=== PATIENT | female | born 1940 | race Caucasian/White ===

== ENCOUNTER 2021-04-14 20:20 | Emergency (ER) | payer MEDICARE ==
--- NOTE | 2021-04-14 20:37 | ED ---
General Adult HPI - General Chief complaint: Trauma Stated complaint: Fall Time Seen by Provider: 04/14/21 20:28 Source: patient Mode of arrival: wheelchair Limitations: no limitations - History of Present Illness Initial comments: Dictation was produced using Everlater dictation software. please excuse any grammatical, word or spelling errors. Chief Complaint: 81-year-old female presents after fall History of Present Illness: 81-year-old female she presents after fall. She takes eliquis for H fibrillation. She states that 1 hour prior to arrival she was taking a step down from Her period misstep about 18 inches. She states she missed a step and fell landing on her right shoulder. She denies hitting her head. No neck pain. No loss consciousness. Patient has no other complaints except for some right shoulder pain. States she has history of rotator cuff injury to that shoulder. The ROS documented in this emergency department record has been reviewed and confirmed by me. Those systems with pertinent positive or negative responses have been documented in the HPI. All other systems are other negative and/or noncontributory. PHYSICAL EXAM: General Impression: Alert and oriented x3, not in acute distress HEENT: Normocephalic atraumatic, extra-ocular movements intact, pupils equal and reactive to light bilaterally, mucous membranes moist. Cardiovascular: Heart regular rate and rhythm Chest: Able to complete full sentences, no retractions, no tachypnea Abdomen: abdomen soft, non-tender, non-distended, no organomegaly Musculoskeletal: Pulses present and equal in all extremities, no peripheral edema Motor: no focal deficits noted Neurological: CN II-XII grossly intact, no focal motor or sensory deficits noted Skin: Intact with no visualized rashes Psych: Normal affect and mood Right shoulder: No step-offs of the clavicle, internal/external rotation are nonantalgic, she does report some pain with abduction past 85 ED course: 81-year-old female takes and a coagulation medications for A. fib presents after fall from a height of 18 inches. All signs upon arrival are within acceptable limits. Physical examination is benign for any severe traumatic injuries. Patient isn't activated level II trauma due to anticoagulation status and fall from greater than ground-level. Patient seen and evaluated via ATLS protocol. Shoulder x-ray unremarkable. Pelvis x-rays unremarkable. Chest x-ray is unrema rkable. Computed tomography scan of the head and C-spine is unremarkable. There is however appear to be sclerotic changes to C4. Laboratory evaluation shows leukopenia of 2.8, macrocytic anemia. Rest of labs unremarkable. No old labs for comparison. Patient notified of her results. Still to follow-up with her primary care doctor. Patient notified of these findings per she states she has a history of breast cancer and these findings are known and being addressed. She has history of leukopenia.. She has a PET scan in the near future to assess for any metastatic disease. Patient is agreeable for discharge. Return precautions discussed. - Related Data Allergies Allergy/AdvReac Type Severity Reaction Status Date / Time No Known Allergies Allergy Verified 04/14/21 20:26 Review of Systems ROS Statement: Those systems with pertinent positive or pertinent negative responses have been documented in the HPI. ROS Other: All systems not noted in ROS Statement are negative. Past Medical History Past Medical History: Atrial Fibrillation Additional Past Medical History / Comment(s): hypotension, balance issues History of Any Multi-Drug Resistant Organisms: None Reported Past Surgical History: Ear Surgery, Heart Catheterization With Stent, Orthopedic Surgery Additional Past Surgical History / Comment(s): rt shoulder Past Psychological History: No Psychological Hx Reported Smoking Status: Never smoker Past Alcohol Use History: None Reported Past Drug Use History: None Reported General Exam Limitations: no limitations Course Vital Signs 04/14/21 20:22 Temperature 97.6 F Pulse Rate 72 Respiratory 20 Rate Blood Pressure 144/77 O2 Sat by Pulse 99 Oximetry Medical Decision Making - Lab Data Result diagrams: 04/14/21 20:57 04/14/21 20:57 Lab Results 04/14/21 04/14/21 Range/Units 20:57 20:57 WBC 2.8 L (3.8-10.6) k/uL RBC 2.73 L (3.80-5.40) m/uL Hgb 10.1 L (11.4-16.0) gm/dL Hct 29.5 L (34.0-46.0) % MCV 108.2 H (80.0-100.0) fL MCH 37.1 H (25.0-35.0) pg MCHC 34.3 (31.0-37.0) g/dL RDW 17.1 H (11.5-15.5) % Plt Count 137 L (150-450) k/uL MPV 7.7 Neutrophils % 57 % Lymphocytes % 33 % Monocytes % 5 % Eosinophils % 1 % Basophils % 1 % Neutrophils # 1.6 (1.3-7.7) k/uL Lymphocytes # 0.9 L (1.0-4.8) k/uL Monocytes # 0.1 (0-1.0) k/uL Eosinophils # 0.0 (0-0.7) k/uL Basophils # 0.0 (0-0.2) k/uL Manual Slide Review Performed Anisocytosis Slight Macrocytosis Marked A Sodium 137 (137-145) mmol/L Potassium 4.3 (3.5-5.1) mmol/L Chloride 106 (98-107) mmol/L Carbon Dioxide 23 (22-30) mmol/L Anion Gap 8 mmol/L BUN 29 H (7-17) mg/dL Creatinine 1.14 H (0.52-1.04) mg/dL Est GFR (CKD-EPI)AfAm 53 (>60 ml/min/1.73 sqM) Est GFR (CKD-EPI)NonAf 46 (>60 ml/min/1.73 sqM) Glucose 117 H (74-99) mg/dL Calcium 9.6 (8.4-10.2) mg/dL Total Bilirubin 0.2 (0.2-1.3) mg/dL AST 23 (14-36) U/L ALT 12 (4-34) U/L Alkaline Phosphatase 80 (38-126) U/L Total Protein 6.4 (6.3-8.2) g/dL Albumin 3.9 (3.5-5.0) g/dL Disposition Clinical Impression: Fall Disposition: HOME SELF-CARE Condition: Good Instructions (If sedation given, give patient instructions): Fall Prevention ( ED) Is patient prescribed a controlled substance at d/c from ED?: No Referrals: None,Stated [Primary Care Provider] - 1-2 days
--- NOTE | 2021-04-14 21:05 | XR ---
Result: Clinical History: Pain. Comparison: None available. Technique: 3 views of the right shoulder. Findings: The bone mineralization is appropriate for age. No acute fracture or dislocation is seen. The acromioclavicular and glenohumeral joints demonstrate mild degenerative changes. 3 mm calcific density adjacent to the tuberosity, compatible with calcific tendinopathy. Right MediPort catheter and lymph node dissection clips seen. Impression: No acute osseous abnormality..
--- NOTE | 2021-04-14 21:06 | XR ---
Result: History: Pain status post fall. Comparison: None available. Technique: A single frontal radiograph of the pelvis was reviewed. Findings: No acute fracture or dislocation is seen. The visualized osseous structures are in anatomic alignmen t. There are mild to moderate degenerative changes of the bilateral hips . Impression: No acute osseous abnormality.
--- NOTE | 2021-04-14 21:07 | XR ---
EXAMINATION TYPE: XR chest 1V portable DATE OF EXAM: 04/14/2021 COMPARISON: NONE HISTORY: Pain status post fall. TECHNIQUE: Single frontal view of the chest is obtained. FINDINGS: There is no focal air space opacity, pleural effusion, or pneumothorax seen. The cardiac silhouette size is enlarged. The osseous structures are intact. Right IJ port catheter with tip ove rlying the caudal SVC is seen. Upper abdominal surgical clips noted. IMPRESSION: No acute process.
[2021-04-14 21:16] LABS: Anisocytosis Slight; Basophils % (A) 1 %; Eosinophils % (A) 1 %; HCT 29.5 % (34.0-46.0); HGB 10.1 gm/dL (11.4-16.0); Lymphocytes # (A) 0.9 k/uL (1.0-4.8); Lymphocytes % (A) 33 %; MCH 37.1 pg (25.0-35.0); MCHC 34.3 g/dL (31.0-37.0); MCV 108.2 fL (80.0-100.0); Macrocytosis Marked; Mean Platelet Volume 7.7; Monocytes # (A) 0.1 k/uL (0-1.0); Monocytes % (A) 5 %; Neutrophils # (A) 1.6 k/uL (1.3-7.7); Neutrophils % (A) 57 %; Platelet Count 137 k/uL (150-450); RBC 2.73 m/uL (3.80-5.40); RDW 17.1 % (11.5-15.5); WBC 2.8 k/uL (3.8-10.6)
[2021-04-14 21:25] LABS: Albumin 3.9 g/dL (3.5-5.0); Calcium 9.6 mg/dL (8.4-10.2); Potassium 4.3 mmol/L (3.5-5.1); Total Bilirubin 0.2 mg/dL (0.2-1.3); Total Protein 6.4 g/dL (6.3-8.2)
--- NOTE | 2021-04-14 21:33 | CT ---
EXAMINATION TYPE: CT brain cspine wo con DATE OF EXAM: 04/14/2021 COMPARISON: None available. HISTORY: fall with pain. CT DLP: 1255.4 mGycm Automated exposure control for dose reduction was used. TECHNIQUE: CT scan of the head and cervical spine are performed without contrast. FINDINGS: There is no acute intracranial hemorrhage, mass effect, or midline shift identified. The ventricles and sulci are within normal limits in size. The globes are intact and the visualized sin uses are clear. Cervical spine is visualized in its entirety from C1 through upper thoracic levels and demonstrates s atisfactory alignment without evidence of acute fracture or dislocation. There is nonspecific mild sc lerotic changes of C4 without bony destruction. Mild cervical spondylosis. Prevertebral soft tissue a ppears within normal limits. The C1-C2 articulation is unremarkable. Right IJ catheter noted. IMPRESSION: No acute intracranial or cervical spine abnormality. Nonspecific C4 sclerotic changes without bony destruction. Etiology and chronicity is indeterminate. Metastatic disease cannot be excluded. Recommend correlation with prior imaging if available. Otherwi se consider bone scan or PET CT for further evaluation..
[2021-04-14 22:04] VITALS: BP 129/86; PULSE 68; RESP 18; TEMP 98
== END 2021-04-14 21:50 | disposition home or self-care (01) ==
LOC: EC 20:20
DX: M25.511 Pain in right shoulder (principal); I48.91 Unspecified atrial fibrillation; Z85.3 Personal history of malignant neoplasm of breast; Z79.01 Long term (current) use of anticoagulants; W10.9XXA Fall (on) (from) unspecified stairs and steps, initial encounter
CPT/HCPCS: 36415; 70450; 71045; 72125; 72170; 80053; 85025; 93005; 99284

== ENCOUNTER → 2021-04-19 | Outpatient (CLI) | payer MEDICARE ==
--- NOTE | 2021-04-19 17:30 | MR ---
EXAMINATION TYPE: MR brain wo/w con DATE OF EXAM: 04/19/2021 COMPARISON: CT brain 04/14/2021 HISTORY: 81-year-old female Breast Cancer, dizziness, loss of balance, abnormal imaging TECHNIQUE: Multiplanar, multisequence images of the brain and brainstem were acquired before and aft er administration of 7 mL IV Gadavist. Diffusion weighted imaging is performed. FINDINGS: The C4 sclerosis seen on recent CT of the cervical spine shows only mild diminished signal on MRI and no significant postcontrast enhancement. No evidence for acute infarction, hemorrhage, mass, mass effect, midline shift, herniation, effacemen t of basal cisterns, or extra-axial fluid collection. There is moderate generalized supratentorial volume loss. No hydrocephalus. Moderate scattered burden of T2 bright white matter change throughout the subcortical, deep, and julia ventricular regions of both rib hemispheres. Dominant left vertebral artery. Otherwise, major intracranial flow voids are intact. Midline structures demonstrate normal morphology. The craniocervical junction is normal. Post contrast images demonstrate no evidence of pathologic enhancement. Dural venous sinuses are pat ent. Mild mucosal thickening ethmoid air cells and floor of the left maxillary sinus. Trapped fluid in the left mastoid air cells and minimal within the right mastoid air cells. IMPRESSION: 1. Moderate cerebral atrophy and moderate burden of chronic small vessel ischemic disease. No acute i ntracranial abnormality or enhancing intracranial lesions seen. 2. The C4 sclerosis described on recent CT of the cervical spine shows only mildly diminished T1 sign al. Findings are nonspecific but the lack of any appreciable enhancement makes metastatic disease les s likely. Findings may reflect an island of red marrow hyperplasia or atypical hemangioma. Depending on clinical suspicion for metastatic disease, either PET/CT versus follow-up cervical spine MRI in 3 months can be considered. 3. Trapped fluid in the left mastoid air cells. Correlate for any mastoid pain to exclude mastoiditis . Lesser degree of fluid in the right mastoid air cells.
== END | disposition home or self-care (01) ==
LOC: RADMRIMAIN 12:59
PROVIDERS: ATTEND Internal Medicine Hematology & Oncology
DX: I67.82 Cerebral ischemia (principal)
CPT/HCPCS: 70553; A9585

== ENCOUNTER → 2021-05-05 | Outpatient (CLI) | payer MEDICARE ==
--- NOTE | 2021-05-05 16:08 | NM ---
EXAMINATION TYPE: NM bone scan whole body DATE OF EXAM: 05/05/2021 COMPARISON: NONE HISTORY: Breast cancer Delayed whole-body scanning was performed following the injection of 22.6 mCi Tc 99m MDP. Images acq uired 3.5 hours post injection. FINDINGS: Abnormal uptake involving the right maxilla likely related to periodontal disease. Abnormal uptake of moderate intensity involving the shoulders most typical of arthritic change. Abnormal uptake involving the knees and feet most typical of arthritic change. Faint photopenic area in the AP view of the right anterior rib cage likely artifactual. There is mild intensity uptake seen throughout the thoracic spine and lower lumbar spine likely degen erative. Mild intensity uptake involving the sternum and sternoclavicular joints most likely post arthritic. IMPRESSION: 1. No diagnostic evidence of metastases. Abnormal uptake involving the vertebral, is felt most likely degenerative. 2. Nonspecific uptake involving the sternum most likely post arthritic. X-ray correlation recommended for confirmation.
== END | disposition home or self-care (01) ==
LOC: RADNMMAIN 10:40
PROVIDERS: ATTEND Internal Medicine Hematology & Oncology
DX: C50.919 Malignant neoplasm of unspecified site of unspecified female breast (principal)
CPT/HCPCS: 78306; A9503

== ENCOUNTER 2021-09-01 05:13 | Emergency (ER) | payer MEDICARE ==
[2021-09-01 05:22] VITALS: TEMP 97.4
--- NOTE | 2021-09-01 05:30 | ED ---
Fall HPI - General Chief Complaint: Fall Stated Complaint: Fall, neck injury Time Seen by Provider: 09/01/21 05:29 Source: patient, RN notes reviewed, old records reviewed Mode of arrival: ambulatory Limitations: no limitations - History of Present Illness Initial Comments: This is a 81-year-old female to the ER for evaluation of fall is a mechanical tr ip and fall with head injury. No blood thinners. Patient has had significant swelling to the head. Patient states she was making cookies been sick for this morning she was feeling persistently dizzy and lightheaded after this but now improved. 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[employer] Fall Witnessed: yes, by family Place Fall Occurred: home Loss of Consciousness: none Prolonged Down Time?: no Symptoms Prior to Fall: none Location: head Severity: mild Context: tripped/slipped Associated Symptoms: headache - Related Data Home Medications Medication Instructions Recorded Confirmed Aspirin EC [Ecotrin Low Dose] 81 mg PO DAILY 09/02/21 09/02/21 Calcium Carbonate/Vitamin D3 1 tab PO DAILY 09/02/21 09/02/21 [Calcium 500 mg-Vit D3 5 mcg (200 Unit)] Cholecalciferol [Vitamin D3 (25 25 mcg PO DAILY 09/02/21 09/02/21 Mcg = 1000 Iu)] Clopidogrel [Plavix] 75 mg PO DAILY 09/02/21 09/02/21 Cyanocobalamin (Vitamin B-12) 1,000 mcg PO DAILY 09/02/21 09/02/21 [Vitamin B-12] Letrozole [Femara] 2.5 mg PO HS 09/02/21 09/02/21 Levothyroxine Sodium [Synthroid] 75 mcg PO DAILY 09/02/21 09/02/21 Loratadine [Claritin] 10 mg PO DAILY 09/02/21 09/02/21 Metoprolol Succinate [Toprol XL] 25 mg PO DAILY 09/02/21 09/02/21 Midodrine [ProAmatine] 15 mg PO BID 09/02/21 09/02/21 Niacin 500 mg PO HS 09/02/21 09/02/21 Vit C/E/Zn/Coppr/Lutein/Zeaxan 1 cap PO BID 09/02/21 09/02/21 [Preservision Areds 2 Softgel] Vitamin B Complex 1 cap PO DAILY 09/02/21 09/02/21 Previous Rx's Medication Instructions Recorded Docusate [Colace] 100 mg PO BID PRN cap 09/04/21 Folic Acid 1 mg PO DAILY@1200 tab 09/04/21 Meclizine [Antivert] 12.5 mg PO TID #60 tab 09/04/21 Multivitamins, Thera [Multivitamin 1 each PO DAILY@1200 tab 09/04/21 (formulary)] Thiamine [Vitamin B-1] 100 mg PO DAILY@1200 tab 09/04/21 Allergies Allergy/AdvReac Type Severity Reaction Status Date / Time No Known Allergies Allergy Verified 09/02/21 11:16 Review of Systems ROS Statement: Those systems with pertinent positive or pertinent negative responses have been documented in the HPI. ROS Other: All systems not noted in ROS Statement are negative. Past Medical History Past Medical History: Atrial Fibrillation Additional Past Medical History / Comment(s): hypotension, balance issues History of Any Multi-Drug Resistant Organisms: None Reported Past Surgical History: Ear Surgery, Heart Catheterization With Stent, Orthopedic Surgery Additional Past Surgical History / Comment(s): rt shoulder Past Psychological History: No Psychological Hx Reported Smoking Status: Never smoker Past Alcohol Use History: None Reported Past Drug Use History: None Reported General Exam Limitations: no limitations General appearance: alert, in no apparent distress Head exam: Present: normocephalic, normal inspection. Absent: atraumatic (mild scalp hematoma) Eye exam: Present: normal appearance, PERRL, EOMI. Absent: scleral icterus, conjunctival injection, periorbital swelling ENT exam: Present: normal exam, mucous membranes moist Neck exam: Present: normal inspection. Absent: tenderness, meningismus, lymphadenopathy Respiratory exam: Present: normal lung sounds bilaterally. Absent: respiratory distress, wheezes, rales, rhonchi, stridor Cardiovascular Exam: Present: regular rate, normal rhythm, normal heart sounds. Absent: systolic murmur, diastolic murmur, rubs, gallop, clicks GI/Abdominal exam: Present: soft, normal bowel sounds. Absent: distended, tenderness, guarding, rebound, rigid Extremities exam: Present: normal inspection, full ROM, normal capillary refill. Absent: tenderness, pedal edema, joint swelling, calf tenderness Back exam: Present: normal inspection Neurological exam: Present: alert, oriented X3, CN II-XII intact Psychiatric exam: Present: normal affect, normal mood Skin exam: Present: warm, dry, intact, normal color. Absent: rash Course Vital Signs 09/01/21 09/01/21 09/01/21 05:16 05:30 07:00 Temperature 97.4 F L Pulse Rate 101 H 84 87 Respiratory 16 18 18 Rate Blood Pressure 119/74 113/69 112/71 O2 Sat by Pulse 99 98 99 Oximetry - Reevaluation(s) Reevaluation #1: Medical record is reviewed Patient symptoms are significantly improved here in the emergency department Patient informed results and questions answered Medical Decision Making - Medical Decision Making 81 female to the clavicle for evaluation of head. Mild. No other findings, CT brain C-spine is negative patient can be discharged home - Lab Data Lab Results 09/01/21 Range/Units 06:00 POC Glucose (mg/dL) 98 (75-99) mg/dL POC Glu Plumber Maintenance ID Dakota Nguyễn - EKG Data -: EKG Interpreted by Me (EKG shows A. fib 94 QRS 94 QTC 487) - Radiology Data Radiology results: report reviewed (CT brain C spine is negative for acute disease), image reviewed Disposition Clinical Impression: Fall, Scalp hematoma Disposition: HOME SELF-CARE Condition: Good Instructions (If sedation given, give patient instructions): Fall Prevention for Older Adults (ED) Is patient prescribed a controlled substance at d/c from ED?: No Referrals: None,Stated [Primary Care Provider] - 1-2 days
[2021-09-01 05:45] VITALS: RESP 18
[2021-09-01 06:01] LABS: Glucose,Whole Blood 98 mg/dL (75-99)
[2021-09-01 07:01] VITALS: BP 112/71; PULSE 87
--- NOTE | 2021-09-01 07:04 | CT ---
EXAMINATION TYPE: CT brain cspine wo con DATE OF EXAM: 09/01/2021 COMPARISON: Prior trauma CT April 14, 2021 HISTORY: Fall injury with headache and neck pain. CT DLP: 1245.7 mGycm. Automated Exposure Control for Dose Reduction was Utilized. TECHNIQUE: CT scan of the head and cervical spine are performed without contrast. FINDINGS: There is no acute intracranial hemorrhage or midline shift identified. Mild ventricular a nd sulcal prominence redemonstrated. The calvarium is intact. The globes are intact and the visualiz ed sinuses are clear. Small right parieto-occipital acute scalp hematoma axial image 48. Cervical spine is visualized in its entirety from C1 through upper thoracic levels and demonstrates s table and satisfactory alignment without evidence of acute fracture or dislocation. Prevertebral sof t tissue appears within normal limits. The C1-C2 articulation is within normal limits on coronal woody ges. Sclerotic C4 redemonstrated. Vertebral body heights are maintained. Mild to moderate disc space narrowing C6-C7 level redemonstrated. Posterior disc herniation effaces the anterior thecal sac at C 3-C4 level. Posterior spur disc complex effaces the anterior thecal sac C6-C7 level. Both similar in appearance to prior study. Axial images show multilevel uncovertebral and facet degenerative changes contribute to mild multilev el neural foraminal narrowing. Small-sized thyroid gland redemonstrated. Lung apices show no pneumoth orax. There is partial visualization of right-sided Mediport catheter. IMPRESSION: 1. There is no acute fracture or dislocation evident in the cervical spine. 2. No acute intracranial hemorrhage or midline shift is seen. New small high right parietal acute sca lp hematoma.
[2021-09-01] MEDS ORDERED: MORPHINE SULFATE 4 MG/ML SYRINGE IV STA (07:37)
[2021-09-01] MEDS ORDERED: SODIUM CHLORIDE 0.9% 1,000 ML IV STA (07:37)
== END 2021-09-01 07:50 | disposition home or self-care (01) ==
LOC: EC 05:13
DX: S00.03XA Contusion of scalp, initial encounter (principal); I48.91 Unspecified atrial fibrillation; Z79.82 Long term (current) use of aspirin; Z79.02 Long term (current) use of antithrombotics/antiplatelets; Z79.890 Hormone replacement therapy; Z79.899 Other long term (current) drug therapy; W01.0XXA Fall on same level from slipping, tripping and stumbling without subsequent striking against object, initial encounter; Y92.009 Unspecified place in unspecified non-institutional (private) residence as the place of occurrence of the external cause
CPT/HCPCS: 36415; 70450; 72125; 93005; 99284

== ENCOUNTER 2021-09-02 08:23 | Inpatient (IN) | payer MEDICARE ==
--- NOTE | 2021-09-02 09:13 | ED ---
General Adult HPI - General Chief complaint: Dizziness Stated complaint: Revisit/NeuroSymp/Dizziness Time Seen by Provider: 09/02/21 08:29 Source: patient Mode of arrival: wheelchair Limitations: physical limitation - History of Present Illness Initial comments: Dictation was produced using [employer] dictation software. please excuse any grammatical, word or spelling errors. Chief Complaint: 81-year-old female presents with dizziness and right lower extremity weakness after fall History of Present Illness: Patient is 81-year-old female she has multiple comorbidities. Patient states she centimeters by me yesterday. She suffered a fall at approximately 4 PM yesterday. She was seen in the emergency room. Computed tomography scan of the head and C-spine was performed showing no acute processes. Patient was discharged home in stable medical condition. Patient states that she's had balance issues ongoing for the last several months. She attributes this to medications that she is on for cancer treatment. Patient states she lost her balance yesterday fell backwards and hit the back of her head. She was seen in the ER had a computed tomography scan of the head and C- spine is normal. Patient states that when she got home she started to feel dizzy. She started to feel worse which prompted her to come back to the [facility] department. Patient also noted after the fall that she had right lower extremity weakness. Patient states she never had issues with weakness to her lower extremities. 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 The ROS documented in this emergency department record has been reviewed and confirmed by me. Those systems with pertinent positive or negative responses have been documented in the HPI. All other systems are other negative and/or noncontributory. PHYSICAL EXAM: General Impression: Alert and oriented x3, not in acute distress HEENT: Normocephalic atraumatic, extra-ocular movements intact, pupils equal and reactive to light bilaterally, mucous membranes moist. Cardiovascular: Heart regular rate and rhythm Chest: Able to complete full sentences, no retractions, no tachypnea Abdomen: abdomen soft, non-tender, non-distended, no organomegaly Musculoskeletal: Pulses present and equal in all extremities, no peripheral edema Motor: no focal deficits noted Neurological: CN II-XII grossly intact, 4/5 strength of the right lower extremity, no sensory issues Skin: Intact with no visualized rashes Psych: Normal affect and mood ED course: 81-year-old female presents to the emergency department for dizziness right lower extremity weakness. She suffered a fall yesterday was seen in the ER had a CT of the brain and C-spine which is unremarkable for traumatic issues or any acute processes per she is discharged home. She returns to the emergency department for dizziness and right lower extremity weakness. She has mild weakness to the right lower extremity. Vital signs upon arrival are within acceptable limits. Patient does have noticeable weakness and drift to the right lower extremity. Laboratory evaluation obtained. Leukopenia of 2.8. This is patient's baseline. Patient also has macrocytosis with a MCV of 114. Coag panel is unremarkable. Metabolic panel is normal. Repeat computed tomography scan of brain shows no acute injuries. X-ray and ankle x-ray unremarkable. Vision reevaluated at the bedside. Her leg is still slightly weak. It's unclear was causing patient's symptoms. She reports that her weakness was from after the fall. She does have some symptoms of concussion with some dizziness after she fell and hit her head. Nonetheless patient will be admitted to the hospital under Dr. Carson with neurology consultation. This point there is no clear cause of patient's symptoms. EKG interpretation: Ventricular rate 61, A. fib, QRS 80, QTc 450. No W[place] prolongation, no QTC prolongation, no ST or T-wave changes noted. EKG compared to 12/31/2020 showing no changes. Overall, this EKG is unremarkable - Related Data Allergies Allergy/AdvReac Type Severity Reaction Status Date / Time No Known Allergies Allergy Verified 09/02/21 08:31 Review of Systems ROS Statement: Those systems with pertinent positive or pertinent negative responses have been documented in the HPI. ROS Other: All systems not noted in ROS Statement are negative. Past Medical History Past Medical History: Atrial Fibrillation Additional Past Medical History / Comment(s): hypotension, balance issues History of Any Multi-Drug Resistant Organisms: None Reported Past Surgical History: Ear Surgery, Heart Catheterization With Stent, Orthopedic Surgery Additional Past Surgical History / Comment(s): rt shoulder Past Psychological History: No Psychological Hx Reported Smoking Status: Never smoker Past Alcohol Use History: None Reported Past Drug Use History: None Reported General Exam Limitations: physical limitation Course Vital Signs 09/02/21 09/02/21 08:28 09:46 Temperature 97.8 F Pulse Rate 67 71 Respiratory 18 18 Rate Blood Pressure 113/53 113/66 O2 Sat by Pulse 100 99 Oximetry Medical Decision Making - Lab Data Result diagrams: 09/02/21 09:46 09/02/21 09:46 Lab Results 09/02/21 09/02/21 09/02/21 Range/Units 09:46 09:46 09:46 WBC 2.8 L (3.8-10.6) k/uL RBC 2.47 L (3.80-5.40) m/uL Hgb 9.3 L (11.4-16.0) gm/dL Hct 28.1 L (34.0-46.0) % MCV 114.0 H (80.0-100.0) fL MCH 37.8 H (25.0-35.0) pg MCHC 33.2 (31.0-37.0) g/dL RDW 13.8 (11.5-15.5) % Plt Count 211 (150-450) k/uL MPV 7.5 Neutrophils % 56 % Lymphocytes % 28 % Monocytes % 10 % Eosinophils % 1 % Basophils % 1 % Neutrophils # 1.6 (1.3-7.7) k/uL Lymphocytes # 0.8 L (1.0-4.8) k/uL Monocytes # 0.3 (0-1.0) k/uL Eosinophils # 0.0 (0-0.7) k/uL Basophils # 0.0 (0-0.2) k/uL Manual Slide Review Performed Macrocytosis Marked A PT 10.3 (9.0-12.0) sec INR 1.0 (<1.2) APTT 23.4 (22.0-30.0) sec Sodium 139 (137-145) mmol/L Potassium 4.4 (3.5-5.1) mmol/L Chloride 108 H (98-107) mmol/L Carbon Dioxide 22 (22-30) mmol/L Anion Gap 9 mmol/L BUN 20 H (7-17) mg/dL Creatinine 0.81 (0.52-1.04) mg/dL Est GFR (CKD-EPI)AfAm 80 (>60 ml/min/1.73 sqM) Est GFR (CKD-EPI)NonAf 70 (>60 ml/min/1.73 sqM) Glucose 94 (74-99) mg/dL Calcium 9.2 (8.4-10.2) mg/dL Magnesium 2.1 (1.6-2.3) mg/dL Total Bilirubin 0.3 (0.2-1.3) mg/dL AST 32 (14-36) U/L ALT 15 (4-34) U/L Alkaline Phosphatase 86 (38-126) U/L Total Protein 6.1 L (6.3-8.2) g/dL Albumin 3.5 (3.5-5.0) g/dL Disposition Clinical Impression: Right leg weakness Disposition: ADMITTED IP TO THIS [facility] Condition: Fair Referrals: Hernán Carson MD [Primary Care Provider] - 1-2 days
[2021-09-02 09:51] LABS: Basophils % (A) 1 %; Eosinophils % (A) 1 %; HCT 28.1 % (34.0-46.0); HGB 9.3 gm/dL (11.4-16.0); Lymphocytes # (A) 0.8 k/uL (1.0-4.8); Lymphocytes % (A) 28 %; MCH 37.8 pg (25.0-35.0); MCHC 33.2 g/dL (31.0-37.0); Macrocytosis Marked; Mean Platelet Volume 7.5; Monocytes # (A) 0.3 k/uL (0-1.0); Monocytes % (A) 10 %; Neutrophils # (A) 1.6 k/uL (1.3-7.7); Neutrophils % (A) 56 %; Platelet Count 211 k/uL (150-450); RBC 2.47 m/uL (3.80-5.40); RDW 13.8 % (11.5-15.5); WBC 2.8 k/uL (3.8-10.6)
[2021-09-02 10:04] LABS: Partial Thromboplastin Time 23.4 sec (22.0-30.0); Prothrombin Time 10.3 sec (9.0-12.0)
[2021-09-02 10:12] LABS: Albumin 3.5 g/dL (3.5-5.0); Calcium 9.2 mg/dL (8.4-10.2); Magnesium 2.1 mg/dL (1.6-2.3); Potassium 4.4 mmol/L (3.5-5.1); Total Bilirubin 0.3 mg/dL (0.2-1.3); Total Protein 6.1 g/dL (6.3-8.2)
--- NOTE | 2021-09-02 10:12 | CT ---
EXAMINATION TYPE: CT brain wo con DATE OF EXAM: 09/02/2021 COMPARISON: 09/01/2021 HISTORY: Head injury CT DLP: 1094.4 mGycm Automated exposure control for dose reduction was used. FINDINGS: The ventricles, basal cisterns and sulci over the convexities are within normal limits and there is n o mass, mass effect or shift of midline structures. No abnormal density is seen throughout the brain parenchyma and there is no acute intra or extra-axia l hemorrhage. The posterior fossa including the brainstem, fourth ventricle and cerebellar pontine angles are gross ly normal. The intraorbital contents appear normal and symmetric. Visualized paranasal sinuses and mastoid air cells are well aerated although there is mild mucosal th ickening in the left maxillary sinus. IMPRESSION: NO ACUTE BLEED OR MASS EFFECT. THE CALVARIUM IS INTACT.
--- NOTE | 2021-09-02 10:21 | XR ---
Right ankle HISTORY: Pain following trauma. COMPARISON: None. TECHNIQUE: 3 views of the right ankle were obtained. The ankle mortise is intact and there is no fracture or dislocation. There is no radiopaque foreign body or abnormal soft tissue calcification. IMPRESSION: Soft tissue swelling without fracture, dislocation or focal intraosseous abnormality.
--- NOTE | 2021-09-02 10:23 | XR ---
Right knee HISTORY: Pain. 4 views the right knee were obtained. There is no fracture patient or focal intraosseous abnormality. There is no joint effusion. There is marked chondrocalcinosis of the medial and lateral compartments. There is mild hypertrophic spurring of the margins indicating degenerative change. IMPRESSION: No acute fracture or dislocation. Degenerative changes as described above.
[2021-09-02] MEDS ORDERED: NALOXONE 0.4 MG/ML 1 ML VIAL IV PRN (10:34)
--- NOTE | 2021-09-02 14:40 | MR ---
EXAMINATION TYPE: MR brain wo con DATE OF EXAM: 09/02/2021 COMPARISON: 04/19/2021 HISTORY: Right leg weakness, ?CVA, dizziness. Multiplanar multiecho imaging of the brain without contrast. There is cerebral cortical atrophy. There is no mass effect nor midline shift. Diffusion images show no evidence of an acute infarct. On the T2 and FLAIR images there are patchy areas of abnormal increa sed signal at the martinez-white matter junction of both cerebral hemispheres. Some of these are coalesce nt or on the lateral ventricles. Foci measure up to 8 mm. There is also possible no focus of increase d signal in the central brainstem at the level of the cerebral peduncles measuring 10 mm. There is intact orbits. Sella turcica appears normal. IMPRESSION: White matter signal changes appear increased compared to last exam. This is consistent with progressi on of microvascular ischemia. There is probably a new focus of microvascular ischemia in the central brainstem compared to old exam. No evidence of cortical infarct.
[2021-09-02] MEDS: SODIUM CHLORIDE 0.9% 1,000 ML IV SCH (14:53)
[2021-09-02] MEDS: ASPIRIN 81 MG PO SCH (15:10)
[2021-09-02] MEDS: METOPROLOL SUCCINATE (ER) 25 MG TAB.ER.24H PO SCH (15:10)
[2021-09-02] MEDS: LEVOTHYROXINE 75 MCG TAB PO SCH (15:10)
[2021-09-02] MEDS: CLOPIDOGREL 75 MG TAB PO SCH (15:10)
[2021-09-02] MEDS: MIDODRINE 5 MG TAB PO SCH (17:48)
--- NOTE | 2021-09-02 18:32 | HP ---
HISTORY AND PHYSICAL I am covering for Dr. Carson. CHIEF COMPLAINTS: Dizziness and weakness on. HISTORY OF PRESENT ILLNESS: This 81-year-old woman with a past medical history of atrial fibrillation, history of hypotension, history of balance issues, history of right breast cancer, history of breast surgery, history of cardiac catheterization, DJD, being followed by Dr. Carson in the outpatient setting, apparently had a fall. Patient had insomnia. At 4:00 patient was awake and she apparently fell down backwards. The patient was evaluated in the ER. CT scan of the spine and cervical spine and brain was normal. The patient was discharged, but subsequently patient had significant dizziness and weakness and inability to move the right leg, and the patient was taken back to the ER and admitted for further evaluation and treatment. Neurology evaluation is in progress. The patient was found to have some leukopenia and anemia. COVID-19 was negative. The patient also had extensive evaluation and repeat CT scan of the brain which I reviewed personally. It showed no active bleeding or mass effect. The calvarium was intact. An MRA was also done. MRA showed white matter appears increased compared to last night, consistent with progression of the microvascular ischemia. A new focus of microvascular vessel ischemia in the central brainstem compared to the old exam was also noted. No evidence of cortical infarct was noted. The patient was admitted for further evaluation and treatment. There is no history of any fever, rigors or chills. No history of headache, loss of consciousness, seizures. PAST MEDICAL HISTORY: History of atrial fibrillation, history of hypotension, balance issues, right breast cancer, history of breast surgery, ear surgery. HOME MEDICATIONS: Vitamin B complex, vitamin C, niacin, metoprolol, loratadine, Synthroid, . Doses and other medications are reviewed. ALLERGIES: NONE. FAMILY HISTORY: No history of heart disease or strokes in the family. SOCIAL HISTORY: No history of smoking. No history of alcohol intake. REVIEW OF SYSTEMS: ENT: Diminished hearing. Diminished vision. CARDIOVASCULAR SYSTEM: No angina, palpitations. RESPIRATORY SYSTEM: No cough, hemoptysis. GI: As mentioned earlier. : No dysuria. NERVOUS SYSTEM: No numbness, weakness. ALLERGY/IMMUNOLOGY: No asthma or hay fever. MUSCULOSKELETAL: As mentioned earlier. HEMATOLOGY/ONCOLOGY: No history of anemia. ENDOCRINE: As mentioned earlier. CONSTITUTIONAL: As mentioned earlier. DERMATOLOGY: Negative. RHEUMATOLOGY: Negative. PSYCHIATRY: As mentioned earlier. PHYSICAL EXAMINATION: Patient alert and oriented x3. Pulse 70, blood pressure is 117/64, respirations 16, temperature 97.0. No orthostatic changes. HEENT: Conjunctivae normal. NECK: No jugular venous distention. CARDIOVASCULAR: S1, S2 muffled. RESPIRATION: Breath sounds diminished at the bases. A few scattered rhonchi. ABDOMEN: Soft, nontender. LEGS: No edema. No swelling. NERVOUS SYSTEM: Higher functions as mentioned earlier. Cranial nerves 2 through 12 grossly intact. Minimal finger-nose incoordination, especially on the right side present. Diffuse weakness on the right leg present. No sensory abnormalities. Gait not tested. Patient complains of back pain. SKIN: No ulcer, rash, bleeding. JOINTS: No active deforming arthropathy. LABS: WBC 2.2, hemoglobin 9.3 and sodium , potassium 4.4. ASSESSMENT: 1. Dizziness and weakness for evaluation, possibly brainstem stroke. 2. History of recent fall and possible cer_concussion. 3. Leukopenia. 4. Anemia, normocytic. 5. History of atrial fibrillation. 6. History of hypotension and balance issues. 7. History of mastectomy. 8. History of right breast cancer. 9. History of cardiac catheterization. 10.History of degenerative joint disease. 11.FULL CODE. RECOMMENDATIONS AND DISCUSSION: In this 81-year-old woman who presented with multiple complex medical issues, we will monitor the patient closely, continue the current medications, continue symptomatic treatment. MRA has been reviewed. Will closely follow with Neurology. Neuro checks. The patient possibly has a cardioembolic stroke or embolic disease. The prognosis is extremely guarded because of the brainstem location of the disease. We will continue to monitor. Guarded prognosis. Further recommendations to follow. Continue the rest of the medications. The patient was taking antiplatelet agents. EKG reviewed personally by me showed atrial fibrillation. We will consult Cardiology as well. The patient might be a candidate for anticoagulation after the acute stage is over because of the high NAEL VASC score. Further recommendations to follow. MMODL / IJN: [id number] / MTDD
--- NOTE | 2021-09-02 20:27 | US ---
EXAMINATION TYPE: US carotid duplex BILAT DATE OF EXAM: 09/02/2021 COMPARISON: NONE CLINICAL HISTORY: stroke. Exam done portable EXAM MEASUREMENTS: RIGHT: Peak Systolic Velocity (PSV) cm/sec ----- Right CCA: 96.8 ----- Right ICA: 107.0 ----- Right ECA: 55.6 ICA/CCA ratio: 1.1 RIGHT: End Diastole cm/sec ----- Right CCA: 25.1 ----- Right ICA: 24.3 ----- Right ECA: 2.5 LEFT: Peak Systolic Velocity (PSV) cm/sec ----- Left CCA: 89.5 ----- Left ICA: 124.0 ----- Left ECA: 50.4 ICA/CCA ratio: 1.4 LEFT: End Diastole cm/sec ----- Left CCA: 19.9 ----- Left ICA: 34.8 ----- Left ECA: 0.0 VERTEBRALS (direction of flow): Right Vertebral: Antegrade Left Vertebral: Antegrade Rhythm: Arrhythmia No significant stenosis IMPRESSION: There is antegrade flow in the vertebral arteries. The images and measurements suggest less than 20% stenosis in both internal carotid arteries. Criteria for Assigning % of Stenosis / Diameter reduction (Estimation based on the indirect measurements of the internal carotid artery velocities (ICA PSV). 1. Normal (no stenosis)=ICA PSV < 125 cm/s: ratio < 2.0: ICA EDV<40 cm/s. 2. Less than 50% stenosis=ICA PSV < 125 cm/s: ratio < 2.0: ICA EDV<40 cm/s. 3. 50 to 69% stenosis=ICA PSV of 125 to 230 cm/s: ration 2.0 ? 4.0: ICA EDV 40-100 cm/s. 4. Greater than 70% stenosis to near occlusion= ICA PSV > 230 cm/s: ratio > 4.0: ICA EDV > 100 cm/s. 5. Near occlusion= ICA PSV velocities may be low or undetectable: variable ratio and ICA EDV. 6. Total occlusion=unable to detect flow.
[2021-09-02] MEDS: HEPARIN SODIUM,PORCINE/PF 5,000 UNIT/0.5 ML SYRINGE SQ SCH (21:03)
[2021-09-02] MEDS: NIACIN TR 500 MG CAPLET PO SCH (21:03)
[2021-09-02] MEDS: VIT A,C & E-LUTEIN-MINERALS 1 EACH TAB PO SCH (21:03)
[2021-09-02] MEDS: LETROZOLE 2.5 MG TAB PO SCH (21:03)
[2021-09-03] MEDS: MIDODRINE 5 MG TAB PO SCH ×2 (05:42→18:07)
[2021-09-03] MEDS: LEVOTHYROXINE 75 MCG TAB PO SCH (05:42)
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
[2021-09-03] MEDS: LORATADINE 10 MG TAB PO SCH (08:46)
[2021-09-03] MEDS: ASPIRIN 81 MG PO SCH (08:46)
[2021-09-03] MEDS: CHOLECALCIFEROL 25 MCG (1000 IU) TABLET PO SCH (08:46)
[2021-09-03] MEDS: METOPROLOL SUCCINATE (ER) 25 MG TAB.ER.24H PO SCH (08:46)
[2021-09-03] MEDS: CALCIUM CARB-VIT D 500 MG-5 MCG TAB PO SCH (08:46)
[2021-09-03] MEDS: VIT A,C & E-LUTEIN-MINERALS 1 EACH TAB PO SCH ×2 (08:46→20:45)
[2021-09-03] MEDS: CYANOCOBALAMIN 500 MCG TAB PO SCH (08:46)
[2021-09-03] MEDS: NON FORMULARY DRUG (Vitamin B Complex [Vitamin B Complex] 1 EACH Capsule) PO SCH (08:47)
[2021-09-03] MEDS: CLOPIDOGREL 75 MG TAB PO SCH (08:47)
[2021-09-03] MEDS: HEPARIN SODIUM,PORCINE/PF 5,000 UNIT/0.5 ML SYRINGE SQ SCH ×2 (08:47→20:45)
[2021-09-03] MEDS: PANTOPRAZOLE 40 MG TABLET PO SCH (08:47)
[2021-09-03] MEDS ORDERED: SENNOSIDES 8.6 MG TAB PO PRN (09:30)
[2021-09-03] MEDS ORDERED: DOCUSATE 100 MG CAP PO PRN (09:37)
[2021-09-03 10:07] LABS: HCT 29.9 % (37.2-46.3); HGB 9.4 g/dL (12.0-15.0); MCH 36.2 pg (27.0-32.0); MCHC 31.4 g/dL (32.0-37.0); Mean Platelet Volume 9.8 fL (9.5-12.2); Platelet Count 230 X 10*3/uL (140-440); RDW 14.6 % (11.5-14.5); WBC 3.07 X 10*3/uL (4.50-10.00)
[2021-09-03 10:50] LABS: African American GFR (CKD) 68.9 (60.0-200.0); Anion Gap 11.9 mmol/L (10.00-18.00); BUN/Creat Ratio 20.5 Ratio (12.00-20.00); Blood Urea Nitrogen 18.8 mg/dL (9.0-27.0); Calcium 9.4 mg/dL (8.7-10.3); Carbon Dioxide 22.3 mmol/L (20.0-27.5); Non-African American GFR(CKD) 59.5 (60.0-200.0); Potassium 4.6 mmol/L (3.5-5.5)
[2021-09-03 11:16] LABS: Basophils # (A) 0.03 X 10*3/uL (0.00-0.10); Eosinophils # (A) 0.04 X 10*3/uL (0.04-0.35); Eosinophils % (A) 1.3 %; Lymphocytes # (A) 1.16 X 10*3/uL (0.90-5.00); Lymphocytes % (A) 37.8 %; Macrocytosis (M) 3+; Monocytes # (A) 0.49 X 10*3/uL (0.20-1.00); Neutrophils # (A) 1.33 X 10*3/uL (1.80-7.70); Neutrophils % (A) 43.2 %
[2021-09-03] MEDS: MULTIVITAMINS, THERA 1 EACH TAB PO SCH (12:18)
[2021-09-03] MEDS: FOLIC ACID 1 MG TAB PO SCH (12:18)
[2021-09-03] MEDS: THIAMINE 100 MG TAB PO SCH (12:18)
[2021-09-03] MEDS: MECLIZINE 12.5 MG TAB PO SCH ×3 (12:23→20:45)
--- NOTE | 2021-09-03 14:05 | P.CRDCN ---
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 She has a history of persistent atrial fibrillation was previously on Eliquis but was having some falls at home therefore had a watchman done about 6 weeks ago. She is currently on aspirin and Plavix. She also has a history of a cancer recently stopped treatment as she's had 2 PET scan showing remission. She initially presented to the emergency department on September 01 after falling at home and hitting her head. At that time she had computed tomography scan of the head and C-spine that showed no acute fracture or dislocation evident in the cervical spine, no acute intracranial hemorrhage or midline shift is seen, new small high right parietal acute scalp hematoma. She was discharged home she presented again yesterday as she was having significant dizziness when she woke in the morning and was not able to stand up. She also had some not iceable right leg weakness which she had not experienced in the past. EKG showed atrial fibrillation with controlled ventricular response. Repeat computed tomography scan showed no acute bleed or mass effect, the calvarium is intact. She's been seen by neurology and underwent a brain MRI revealed white matter signal changes appear increased compared to last exam, this is consistent with progression of microvascular ischemia, there is probably a new focus of microvascular ischemia and the central brainstem compared to old exam, no evidence of cortical infarct. Brought duplex study showed no significant stenosis. Laboratory values on admission showed white blood cell count 2.8, hemoglobin 9.3, potassium 4.4, BUN 20, creatinine 0.81. No signs of been stable there is been no evidence of orthostatic hypotension. She has had one isolated reading with a blood pressure of 80/42 on others have been within normal limits. She's been afebrile. On examination this morning she sitting up at the site of the bed eating breakfast. She said overall she does not feel well. She is quite dizzy this morning. She complains of chronic, stable SHEA. Denies c/o chest discomfort, syncope, orthopnea, or PND. Past Medical History Past Medical History: Atrial Fibrillation Additional Past Medical History / Comment(s): hypotension, balance issues History of Any Multi-Drug Resistant Organisms: None Reported Past Surgical History: Ear Surgery, Heart Catheterization With Stent, Orthopedic Surgery Additional Past Surgical History / Comment(s): rt shoulder Past Psychological History: No Psychological Hx Reported Smoking Status: Never smoker Past Alcohol Use History: None Reported Past Drug Use History: None Reported Medications and Allergies Home Medications Medication Instructions Recorded Confirmed Type Aspirin EC [Ecotrin Low Dose] 81 mg PO DAILY 09/02/21 09/02/21 History Calcium Carbonate/Vitamin D3 1 tab PO DAILY 09/02/21 09/02/21 History [Calcium 500 mg-Vit D3 5 mcg (200 Unit)] Cholecalciferol [Vitamin D3 (25 25 mcg PO DAILY 09/02/21 09/02/21 History Mcg = 1000 Iu)] Clopidogrel [Plavix] 75 mg PO DAILY 09/02/21 09/02/21 History Cyanocobalamin (Vitamin B-12) 1,000 mcg PO DAILY 09/02/21 09/02/21 History [Vitamin B-12] Letrozole [Femara] 2.5 mg PO HS 09/02/21 09/02/21 History Levothyroxine Sodium [Synthroid] 75 mcg PO DAILY 09/02/21 09/02/21 History Loratadine [Claritin] 10 mg PO DAILY 09/02/21 09/02/21 History Metoprolol Succinate [Toprol XL] 25 mg PO DAILY 09/02/21 09/02/21 History Midodrine [ProAmatine] 15 mg PO BID 09/02/21 09/02/21 History Niacin 500 mg PO HS 09/02/21 09/02/21 History Vit C/E/Zn/Coppr/Lutein/Zeaxan 1 cap PO BID 09/02/21 09/02/21 History [Preservision Areds 2 Softgel] Vitamin B Complex 1 cap PO DAILY 09/02/21 09/02/21 History Allergies Allergy/AdvReac Type Severity Reaction Status Date / Time No Known Allergies Allergy Verified 09/02/21 11:16 Physical Exam Vitals: Vital Signs Temp Pulse Pulse Pulse Pulse Pulse Resp 09/03/21 07:00 97.6 F 62 17 09/03/21 01:30 97.8 F 81 18 09/02/21 19:34 98.1 F 71 67 64 19 09/02/21 15:00 97.5 F L 70 72 65 09/02/21 14:00 72 18 09/02/21 11:02 66 18 09/02/21 09:46 71 18 BP BP BP BP Pulse Ox 09/03/21 07:00 117/60 97 09/03/21 01:30 88/42 98 09/02/21 19:34 139/73 123/71 120/53 96 09/02/21 15:00 117/64 129/78 118/68 09/02/21 14:00 09/02/21 11:02 116/88 96 09/02/21 09:46 113/66 99 Intake and Output 09/02/21 09/03/21 09/03/21 22:59 06:59 14:59 Other: Voiding Method Toilet Toilet # Voids 2 3 Weight 65.771 kg PHYSICAL EXAMINATION: This is a 81-year-old female in no apparent distress at the time of my examination. VITAL SIGNS: Blood pressure 117/60, heart rate 62, respirations 18, temp 97.6F. Patient is 97 % on room air. HEENT: Pupils are equal, round. Sclerae anicteric. Conjunctivae are clear. M ucous membranes of the mouth are moist. Neck is supple. There is no elevated jugular venous pressure. No carotid bruit is heard. CHEST EXAMINATION: Clear to auscultation bilaterally. No wheezes rales or rhonchi. Respirations even and nonlabored. HEART EXAMINATION: Heart irregular rate and rhythm, positive S1 and S2. No S3. No S4. With a systolic murmur. ABDOMEN: Soft, nontender. Bowel sounds are heard. No organomegaly noted. EXTREMITIES: 2+ peripheral pulses with no evidence of peripheral edema and no calf tenderness noted. NEUROLOGIC EXAMINATION: Patient is awake, alert and oriented x3. Results 09/03/21 05:52 09/03/21 05:52 Cardiac Enzymes 09/02/21 Range/Units 09:46 AST 32 (14-36) U/L Coagulation 09/02/21 Range/Units 09:46 PT 10.3 (9.0-12.0) sec APTT 23.4 (22.0-30.0) sec CBC 09/02/21 Range/Units 09:46 WBC 2.8 L (3.8-10.6) k/uL RBC 2.47 L (3.80-5.40) m/uL Hgb 9.3 L (11.4-16.0) gm/dL Hct 28.1 L (34.0-46.0) % Plt Count 211 (150-450) k/uL Comprehensive Metabolic Panel 09/02/21 Range/Units 09:46 Sodium 139 (137-145) mmol/L Potassium 4.4 (3.5-5.1) mmol/L Chloride 108 H (98-107) mmol/L Carbon Dioxide 22 (22-30) mmol/L BUN 20 H (7-17) mg/dL Creatinine 0.81 (0.52-1.04) mg/dL Glucose 94 (74-99) mg/dL Calcium 9.2 (8.4-10.2) mg/dL AST 32 (14-36) U/L ALT 15 (4-34) U/L Alkaline Phosphatase 86 (38-126) U/L Total Protein 6.1 L (6.3-8.2) g/dL Albumin 3.5 (3.5-5.0) g/dL Current Medications Generic Name Dose Route Start Last Admin Trade Name Freq PRN Reason Stop Dose Admin Aspirin 81 mg 09/02/21 14:15 09/03/21 08:46 Aspirin 81 Mg PO 81 mg DAILY SALLY Administration Calcium Carbonate 1 each 09/03/21 09:00 09/03/21 08:46 Calcium Carb-Vit D 500 Mg-5 Mcg Tab PO 1 each DAILY SALLY Administration Cholecalciferol 25 mcg 09/03/21 09:00 09/03/21 08:46 Cholecalciferol 25 Mcg (1000 Iu) Tablet PO 25 mcg DAILY SALLY Administration Clopidogrel Bisulfate 75 mg 09/02/21 14:15 09/03/21 08:47 Clopidogrel 75 Mg Tab PO 75 mg DAILY SALLY Administration Cyanocobalamin 1,000 mcg 09/03/21 09:00 09/03/21 08:46 Cyanocobalamin 500 Mcg Tab PO 1,000 mcg DAILY SALLY Administration Folic Acid 1 mg 09/03/21 12:00 Folic Acid 1 Mg Tab PO DAILY@1200 SALLY Heparin Sodium (Porcine) 5,000 unit 09/02/21 21:00 09/03/21 08:47 Heparin Sodium,Porcine/Pf 5,000 Unit/0.5 Ml Syringe SQ 5,000 unit Q12HR SALLY Administration Sodium Chloride 1,000 mls @ 20 mls/hr 09/02/21 10:45 09/02/21 14:53 Saline 0.9% IV Not Given .Q24H SALLY Letrozole 2.5 mg 09/02/21 21:00 09/02/21 21:03 Letrozole 2.5 Mg Tab PO 2.5 mg HS SALLY Administration Levothyroxine Sodium 75 mcg 09/02/21 14:15 09/03/21 05:42 Levothyroxine 75 Mcg Tab PO 75 mcg 0630 SALLY Administration Loratadine 10 mg 09/03/21 09:00 09/03/21 08:46 Loratadine 10 Mg Tab PO 10 mg DAILY SALLY Administration Metoprolol Succinate 25 mg 09/02/21 14:15 09/03/21 08:46 Metoprolol Succinate (Er) 25 Mg Tab.Er.24h PO 25 mg DAILY SALLY Administration Midodrine 15 mg 09/02/21 18:00 09/03/21 05:42 Midodrine 5 Mg Tab PO 15 mg BID@0600,1800 SALLY Administration Multivitamins 1 each 09/03/21 12:00 Multivitamins, Thera 1 Each Tab PO DAILY@1200 [facility] Multivitamins/Minerals 1 each 09/02/21 21:00 09/03/21 08:46 Vit A,C & A-Ebqzfr-Otgcxwbg 1 Each Tab PO 1 each BID SALLY Administration Naloxone HCl 0.2 mg 09/02/21 10:34 Naloxone 0.4 Mg/Ml 1 Ml Vial IV Q2M PRN Opioid Reversal Niacin 500 mg 09/02/21 21:00 09/02/21 21:03 Niacin Tr 500 Mg Caplet PO 500 mg HS SALLY Administration Non-Formulary Medication 1 cap 09/03/21 09:00 09/03/21 08:47 Vitamin B Complex [Vitamin B Complex] PO Not Given DAILY SALLY Pantoprazole Sodium 40 mg 09/03/21 07:30 09/03/21 08:47 Pantoprazole 40 Mg Tablet PO 40 mg AC-[id number] SALLY Administration Thiamine HCl 100 mg 09/03/21 12:00 Thiamine 100 Mg Tab PO DAILY@1200 SALLY Intake and Output 09/02/21 09/03/21 09/03/21 22:59 06:59 14:59 Other: Voiding Method Toilet Toilet # Voids 2 3 Weight 65.771 kg 09/02/21 09:46 09/02/21 09:46 Assessment and Plan Assessment: #1 dizziness and lower extremity weakness, neurology is evaluating, possible microvascular ischemia involving the brainstem #2 persistent atrial fibrillation, status post watchman 6 weeks ago, currently on aspirin and Plavix #3 history of hypotension, currently mostly normotensive, no evidence of orthostatic hypotension #4 history of right breast cancer status post mastectomy recently treatment was stopped due to remission #5 leukopenia #6 anemia Plan: From cardiology's perspective we'll obtain a 2-D echo with Doppler study to assess cardiac structure and function. We will await input form neurology in regards to anticoagulation. If they feel the MRI reflects a new event she may require anticoagulation. We will continue to monitor the patient and provide further recommendations. INFECTION PREVENTION COORDINATOR note has been reviewed, I agree with a documented findings and plan of care. Patient was seen and examined.
--- NOTE | 2021-09-03 15:41 | XR ---
EXAMINATION TYPE: XR sacrum coccyx DATE OF EXAM: 09/03/2021 COMPARISON: NONE HISTORY: Pain after a fall TECHNIQUE: 3 views FINDINGS: Sacroiliac joints are intact. Sacrum and coccyx show normal alignment of the segments. Ther e is no evidence for fracture. IMPRESSION: Negative sacrum and coccyx exam.
--- NOTE | 2021-09-03 15:49 | XR ---
EXAMINATION TYPE: XR spine complete AP and Lat DATE OF EXAM: 09/03/2021 COMPARISON: None HISTORY: Pain TECHNIQUE: 9 views FINDINGS: Cervical vertebra have normal alignment. There is degenerative spur formation at C5-6 and C 6-7. There is mild narrowing at C6-7 disc space. Atlantoaxial facet joint is normal. There are no cer vical ribs. Thoracic vertebra show a mild thoracic pathologic deformity. There is slight anterior wedging of a fe w mid thoracic vertebra up to 20%. There is mild osteopenia. The lumbar vertebra have normal disc spa troy. There is a minimal degenerative L4-5 spondylolisthesis. There is no lumbar compression fracture. Sacroiliac joints are intact. IMPRESSION: There is a mild degenerative first-degree L4-5 spondylolisthesis. Mild osteoporotic type compression deformities of the mid thoracic spine. Mild spondylotic changes in the lower cervical spine. No definite acute fracture seen.
--- NOTE | 2021-09-03 16:54 | P.PN ---
Subjective Progress Note Date: 09/03/21 Patient was seen for a follow-up via telemedicine today on 09/03/2021. Patient states that she feels very tired, very dizzy. Also feels constipated. Patient is not receiving any chemotherapy at this time. Patient states that she has problems with balance for last 1 year, as she used to walk slowly but did not use any assistive device. She would lose balance once in a while off and on for last 1 year. Patient states that she has not slept well for last 1 week. 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 Her balance has gotten much worse since then. She tends to fall backwards. Patient denies any numbness of the lower limbs. She does have problem with urine control for long time. However more concerned about constipation lately. Objective - Vital Signs Vital signs: Vital Signs Temp 97.6 F 09/03/21 07:00 Pulse 62 09/03/21 07:00 Resp 17 09/03/21 07:00 BP 117/60 09/03/21 07:00 Pulse Ox 97 09/03/21 07:00 Intake & Output 09/02/21 09/03/21 09/03/21 18:59 06:59 18:59 Weight 65.771 kg Other: Voiding Method Toilet Toilet # Voids 1 3 - Exam Patient's mental status, speech and language functions are normal. Cranial nerves are normal. Muscle strength is normal including detailed testing of the lower extremities bilaterally. Reflexes are knees 2+ to 3 bilaterally. I had patient try to walk. Patient was having significant difficulty getting up from the bed. Patient was extremely off balance, high fall risk, was at least 1 (preferable 2) person assist. Patient states that she does not use any assistive devices at home at baseline, prior to the fall. - Labs CBC & Chem 7: 09/03/21 05:52 09/03/21 05:52 Labs: Abnormal Lab Results - Last 24 Hours (Table) 09/03/21 09/03/21 Range/Units 05:52 05:52 WBC 3.07 L (4.50-10.00) X 10*3/uL RBC 2.60 L (4.10-5.20) X 10*6/uL Hgb 9.4 L (12.0-15.0) g/dL Hct 29.9 L (37.2-46.3) % MCV 115.0 H (80.0-97.0) fL MCH 36.2 H (27.0-32.0) pg MCHC 31.4 L (32.0-37.0) g/dL RDW 14.6 H (11.5-14.5) % Neutrophils # 1.33 L (1.80-7.70) X 10*3/uL Est GFR (CKD-EPI)NonAf 59.5 L (60.0-200.0) BUN/Creatinine Ratio 20.50 H (12.00-20.00) Ratio Assessment and Plan Assessment: * Status post fall 09/01/2021 when patient's bumped into her, and she fell, and he fell on her. Patient has developed significant balance issues since then. No evidence of acute stroke noted on MRI. * Atrial fibrillation for 2 years, recently had undergone watchman device. * Breast cancer stage IV, currently in remission. * Balance issues for last 1 year, which was felt to be related to side effect of chemotherapy. Balance much worse since last two days. * Chronic back pain for a number of years, worse since the fall. Plan: * MRI of the brain without contrast from 09/02/2021 shows no acute process. Small vessel ischemic disease was seen. Radiologist (Dr. Siu) reported probably a new focus of microvascular ischemia in the central brain stem. I reviewed the MRI, and there is no evidence of an acute stroke in the brainstem. No cortical infarct. * Carotid Doppler revealed antegrade flow in both vertebral arteries. Less than 20% stenosis in both ICAs. * Patient's balance appears to be much worse as compared to baseline. We will check x-ray of the entire spine to rule out compression fracture, and also of the sacrum. * Patient currently on aspirin 81 mg and Plavix 75 mg for atrial fibrillation, since she had undergone watchman device placement. * Dr. Pravin Garcia Will resume neurology service in the morning.
[2021-09-03] MEDS: SODIUM CHLORIDE 0.9% 1,000 ML IV SCH (19:00)
--- NOTE | 2021-09-03 19:27 | PN ---
PROGRESS NOTE DATE OF SERVICE: 09/03/2021 I am covering for Dr. Carson. This 81-year-old woman with a past medical history of multiple medical problems admitted with fall and subsequent balance issues. Patient unable to walk and the patient also had some minimal weakness on the right lower leg and also had some inconsistent jerks to the left gaze as well. MRI was recommended by Dr. Gold in Neurology, which showed an enhancing lesion at the T2 flare. I discussed the case at length with Dr. Gold, who does not think the patient had a stroke but other abnormalities cannot be completely ruled out. Please also note that the patient also had history of breast cancer in remission also. PAST MEDICAL HISTORY: Reviewed. REVIEW OF SYSTEMS: ENT as mentioned earlier. Cardiovascular: No angina. Respiration: No cough. GI as mentioned earlier. : No dysuria. Nervous system: No numbness or weakness. CURRENT MEDICATIONS: Reviewed and include: Aspirin, Os-Cecilio with vitamin D3, vitamin B12, Colace, folic acid, other medication noted. PHYSICAL EXAMINATION: Patient is alert, oriented x3. Pulse is 78, blood pressure 108/171, respirations 16, temperature 97.2, pulse ox 98% on room air. HEENT: Conjunctivae normal. Cardiovascular: S1, S2 muffled. Respiration: Breath sounds diminished in the bases. A few scattered rhonchi and crackles. Abdomen: Soft, nontender. Legs are no edema. No swelling. Nervous system: Mild diffuse weakness as mentioned earlier. LABS: WBC 3.7, hemoglobin 9.4, MCV 115. ASSESSMENT: 1. Dizziness and weakness for evaluation. Rule out brainstem stroke or demyelinating illness or brainstem encephalitis. 2. History of recent fall and possible concussion. 3. Leukopenia. 4. Anemia normocytic. 5. History of atrial fibrillation. 6. History of hypotension and balance issues. 7. History of mastectomy. 8. History of right breast cancer in remission. 9. History of cardiac catheterization. 10.History of degenerative joint disease. 11.FULL CODE. RECOMMENDATIONS AND DISCUSSION: Recommend to continue current medications, management and symptomatic treatment. Otherwise at this time, as I mentioned earlier, had a detailed discussion with Dr. Gold, who will review the MRI with the radiologist and continue to monitor. Otherwise I would treat the patient symptomatically and we will consider unusual diagnosis also need to be ruled out. I would also recommend evaluation by Dr. Yadav for any evidence of any recurrence of malignancy. The prognosis guarded and Dr. Carson will follow. MMODL / IJN: [id number] /
[2021-09-03] MEDS: NIACIN TR 500 MG CAPLET PO SCH (20:45)
[2021-09-03] MEDS: LETROZOLE 2.5 MG TAB PO SCH (20:45)
[2021-09-04] MEDS: MIDODRINE 5 MG TAB PO SCH (05:18)
[2021-09-04] MEDS: LEVOTHYROXINE 75 MCG TAB PO SCH (05:18)
[2021-09-04] MEDS: PANTOPRAZOLE 40 MG TABLET PO SCH (07:42)
[2021-09-04] MEDS: ASPIRIN 81 MG PO SCH (07:42)
[2021-09-04] MEDS: CHOLECALCIFEROL 25 MCG (1000 IU) TABLET PO SCH (07:42)
[2021-09-04] MEDS: NON FORMULARY DRUG (Vitamin B Complex [Vitamin B Complex] 1 EACH Capsule) PO SCH (07:42)
[2021-09-04] MEDS: CYANOCOBALAMIN 500 MCG TAB PO SCH (07:42)
[2021-09-04] MEDS: FOLIC ACID 1 MG TAB PO SCH (07:43)
[2021-09-04] MEDS: THIAMINE 100 MG TAB PO SCH (07:43)
[2021-09-04] MEDS: METOPROLOL SUCCINATE (ER) 25 MG TAB.ER.24H PO SCH (07:43)
[2021-09-04] MEDS: CALCIUM CARB-VIT D 500 MG-5 MCG TAB PO SCH (07:43)
[2021-09-04] MEDS: VIT A,C & E-LUTEIN-MINERALS 1 EACH TAB PO SCH (07:43)
[2021-09-04] MEDS: MECLIZINE 12.5 MG TAB PO SCH ×2 (07:43→15:01)
[2021-09-04] MEDS: CLOPIDOGREL 75 MG TAB PO SCH (07:43)
[2021-09-04] MEDS: LORATADINE 10 MG TAB PO SCH (07:43)
[2021-09-04] MEDS: HEPARIN SODIUM,PORCINE/PF 5,000 UNIT/0.5 ML SYRINGE SQ SCH (07:44)
[2021-09-04 07:47] VITALS: BP 116/70; PULSE 58; RESP 18; TEMP 97.7
[2021-09-04 09:28] LABS: Basophils # (A) 0.04 X 10*3/uL (0.00-0.10); Basophils % (A) 1.3 %; Eosinophils # (A) 0.04 X 10*3/uL (0.04-0.35); Eosinophils % (A) 1.3 %; HCT 30.7 % (37.2-46.3); HGB 9.8 g/dL (12.0-15.0); Lymphocytes # (A) 1.27 X 10*3/uL (0.90-5.00); Lymphocytes % (A) 39.7 %; MCH 36.2 pg (27.0-32.0); MCHC 31.9 g/dL (32.0-37.0); MCV 113.3 fL (80.0-97.0); Mean Platelet Volume 9.9 fL (9.5-12.2); Monocytes # (A) 0.55 X 10*3/uL (0.20-1.00); Monocytes % (A) 17.2 %; Neutrophils # (A) 1.27 X 10*3/uL (1.80-7.70); Neutrophils % (A) 39.6 %; Platelet Count 240 X 10*3/uL (140-440); RBC 2.71 X 10*6/uL (4.10-5.20); RDW 14.6 % (11.5-14.5)
[2021-09-04] MEDS: SODIUM CHLORIDE 0.9% 1,000 ML IV SCH (09:51)
--- NOTE | 2021-09-04 10:49 | P.PN ---
Subjective Progress Note Date: 09/04/21 HISTORY OF PRESENT ILLNESS: A pleasant 81-year-old female patient who follows with a fpga design engineer out of [place]. She has a history of persistent atrial fibrillation was previously on Eliquis but was having some falls at home therefore had a watchman done about 6 weeks ago. She is currently on aspirin and Plavix. She also has a history of a cancer recently stopped treatment as she's had 2 PET scan showing remission. She initially presented to the emergency department on September 01 after falling at home and hitting her head. At that time she had computed tomography scan of the head and C-spine that showed no acute fracture or dislocation evident in the cervical spine, no acute intracranial hemorrhage or midline shift is seen, new small high right parietal acute scalp hematoma. She was discharged home she presented again yesterday as she was having significant dizziness when she woke in the morning and was not able to stand up. She also had some notice able right leg weakness which she had not experienced in the past. EKG showed atrial fibrillation with controlled ventricular response. Repeat computed tomography scan showed no acute bleed or mass effect, the calvarium is intact. She's been seen by neurology and underwent a brain MRI revealed white matter signal changes appear increased compared to last exam, this is consistent with progression of microvascular ischemia, there is probably a new focus of microvascular ischemia and the central brainstem compared to old exam, no evidence of cortical infarct. Brought duplex study showed no significant stenosis. Laboratory values on admission showed white blood cell count 2.8, hemoglobin 9.3, potassium 4.4, BUN 20, creatinine 0.81. No signs of been stable there is been no evidence of orthostatic hypotension. She has had one isolated reading with a blood pressure of 80/42 on others have been within normal limits. She's been afebrile. On examination this morning she sitting up at the site of the bed eating breakfast. She said overall she does not feel well. She is quite dizzy this morning. She complains of chronic, stable SHEA. Denies c/o chest discomfort, syncope, orthopnea, or PND. 09/04/2021 Patient examined this morning at the bedside. She denies chest pain or pressure. Denies shortness of breath. She states that she is getting weak and would like to start ambulating more. She has been started on Antivert which she believes is helping her symptoms. PHYSICAL EXAM: VITAL SIGNS: Reviewed. GENERAL: Well-developed in no acute distress. NECK: Supple. No JVD or thyromegaly LUNGS: Respirations even and unlabored. Lungs essentially clear to auscultation bilaterally. HEART: Irregular rate and rhythm. S1 and S2 heard. Systolic murmur noted. EXTREMITIES: Normal range of motion. No clubbing or cyanosis. Peripheral pulses intact. No lower extremity edema ASSESSMENT: Status post fall with subsequent balance issues, MRI negative for acute CVA Chronic persistent atrial fibrillation, s/p Watchman procedure 6 week ago, on aspirin and plavix History of right breast cancer status post mastectomy and chemotherapy Chronic back pain Anemia History of recurrent falls PLAN: 2D echo ordered. Await results. Continue current cardiac medications Continue aspirin and plavix Patient is currently stable from a cardiac standpoint She is to follow up with her fpga design engineer at [place] post discharge Nurse practitioner note has been reviewed by physician. Signing provider agrees with the documented findings, assessment, and plan of care. Objective - Vital Signs Vital signs: Vital Signs Temp 97.7 F 09/04/21 07:00 Pulse 58 L 09/04/21 07:00 Resp 18 09/04/21 07:00 BP 116/70 09/04/21 07:00 Pulse Ox 96 09/04/21 07:00 Intake & Output 09/03/21 09/04/21 09/04/21 18:59 06:59 18:59 Intake Total 520 Balance 520 Intake: Oral 520 Other: Voiding Method Toilet Toilet # Voids 1 3 # Bowel Movements 1 1 - Labs CBC & Chem 7: 09/04/21 05:31 09/03/21 05:52 Labs: Abnormal Lab Results - Last 24 Hours (Table) 09/03/21 09/03/21 09/04/21 Range/Units 05:52 05:52 05:31 WBC 3.20 L (4.50-10.00) X 10*3/uL RBC 2.71 L (4.10-5.20) X 10*6/uL Hgb 9.8 L (12.0-15.0) g/dL Hct 30.7 L (37.2-46.3) % MCV 113.3 H (80.0-97.0) fL MCH 36.2 H (27.0-32.0) pg MCHC 31.9 L (32.0-37.0) g/dL RDW 14.6 H (11.5-14.5) % Neutrophils # 1.33 L 1.27 L (1.80-7.70) X 10*3/uL Est GFR (CKD-EPI)NonAf 59.5 L (60.0-200.0) BUN/Creatinine Ratio 20.50 H (12.00-20.00) Ratio
[2021-09-04] MEDS: MULTIVITAMINS, THERA 1 EACH TAB PO SCH (11:42)
[2021-09-04 12:35] LABS: African American GFR (CKD) 65 (>60 ml/min/1.73 sqM); Anion Gap 9 mmol/L; Blood Urea Nitrogen 23 mg/dL (7-17); Carbon Dioxide 27 mmol/L (22-30); Chloride 101 mmol/L (98-107); Glucose 119 mg/dL (74-99); Non-African American GFR(CKD) 56 (>60 ml/min/1.73 sqM); Potassium 4.6 mmol/L (3.5-5.1); Sodium 137 mmol/L (137-145)
--- NOTE | 2021-09-04 14:33 | MR ---
EXAMINATION TYPE: MR brain w con DATE OF EXAM: 09/04/2021 COMPARISON: MRI brain 2 days ago. HISTORY: Follow up on previous suspicious findings TECHNIQUE: Multiplanar, multisequence images of the brain and brainstem is performed with IV contrast, utilizing 6.5 mL intravenous Gadavist . FINDINGS: Postcontrast images show some motion artifact but no suspicious enhancing intraparenchymal masses or abnormal enhancement. Incidental bilateral vertebral arteries with dominant left vertebral artery to the basilar junction. The dural venous sinuses appear patent. IMPRESSION: As above.
--- NOTE | 2021-09-04 14:37 | P.DS ---
Providers Date of admission: 09/02/21 10:34 Expected date of discharge: 09/04/21 Attending physician: Hernán Carson Consults: 09/02/21 10:36 Consult Physician Routine Consulting Provider: Guanako Choi Consult Reason/Comments: right lower extremity weakness Do you want consulting provider notified?: Yes 09/02/21 17:17 Consult Physician Routine Consulting Provider: Tj Lowe Consult Reason/Comments: afib Do you want consulting provider notified?: Yes 09/03/21 18:08 Consult Physician Routine Consulting Provider: Aldo Yadav Consult Reason/Comments: brest ca unusal brain stem lesion? para neoplastic?? Do you want consulting provider notified?: Yes Primary care physician: Hernán Carson Hospital Course: HISTORY OF PRESENT ILLNESS This is a 81-year-old female patient with past medical history of persistent atrial fibrillation on eliquis previously and recently underwent watchman procedure 6 weeks ago currently on just aspirin and Plavix, history of coronary artery disease status post stent, hypothyroidism, seasonal ALLERGIES, history of hypotension and balance issues, history of breast cancer stage IV in remission. Patient came in the hospital due to a fall hitting her head. CAT scan of the head and cervical spine showed no acute fracture dislocation, no acute intracranial hemorrhage or midline shift. There was a right parietal acute scalp hematoma. She was discharged home initially and then came back with complaints of dizziness when she woke in the morning. Patient has been started on meclizine. EKG showed atrial fibrillation with a controlled rate. A repeat CAT scan showed no acute findings. MRI of the brain revealed white matter signal changes appear increased consistent with progression of microvascular ischemia. There is probably a new focus of microvascular ischemia and central brainstem compared to old exam. No evidence of cortical infarct. Carotid duplex showed no significant stenosis. Patient has been seen by neurology, cardiology. Patient states that she has not been out of bed. No lightheadedness or dizziness while resting in bed. Echocardiogram is pending. Patient was seen today by oncology and MRI of the brain and cervical spine up and ordered. We have also added in consult with PT and OT for possible discharge later today ASSESSMENT AND PLAN 1. Status post fall, stroke ruled out. 2. Chronic persistent atrial fibrillation status post watchman procedure. 3. History of breast cancer stage IV in remission. 4. History of hypertension. 5. Bicytopenia with leukopenia and anemia. DISCHARGE PLAN Home with [facility]. Greater than 35 minutes was utilized and coordinating patient's discharge. Impression and plan of care have been directed as dictated by the signing physician. Corinne Scanlon nurse practitioner acting as scribe for signing physician. Patient Condition at Discharge: Stable Plan - Discharge Summary Discharge Rx Participant: No New Discharge Prescriptions: New Meclizine [Antivert] 12.5 mg PO TID #60 tab Folic Acid 1 mg PO DAILY@1200 tab Thiamine [Vitamin B-1] 100 mg PO DAILY@1200 tab Docusate [Colace] 100 mg PO BID PRN cap PRN Reason: Constipation Multivitamins, Thera [Multivitamin (formulary)] 1 each PO DAILY@1200 tab Continue Vitamin B Complex 1 cap PO DAILY Levothyroxine Sodium [Synthroid] 75 mcg PO DAILY Loratadine [Claritin] 10 mg PO DAILY Cyanocobalamin (Vitamin B-12) [Vitamin B-12] 1,000 mcg PO DAILY Clopidogrel [Plavix] 75 mg PO DAILY Aspirin EC [Ecotrin Low Dose] 81 mg PO DAILY Vit C/E/Zn/Coppr/Lutein/Zeaxan [Preservision Areds 2 Softgel] 1 cap PO BID Niacin 500 mg PO HS Cholecalciferol [Vitamin D3 (25 Mcg = 1000 Iu)] 25 mcg PO DAILY Calcium Carbonate/Vitamin D3 [Calcium 500 mg-Vit D3 5 mcg (200 Unit)] 1 tab PO DAILY Midodrine [ProAmatine] 15 mg PO BID Metoprolol Succinate [Toprol XL] 25 mg PO DAILY Letrozole [Femara] 2.5 mg PO HS Discharge Medication List Aspirin EC [Ecotrin Low Dose] 81 mg PO DAILY 09/02/21 [History] Calcium Carbonate/Vitamin D3 [Calcium 500 mg-Vit D3 5 mcg (200 Unit)] 1 tab PO DAILY 09/02/21 [History] Cholecalciferol [Vitamin D3 (25 Mcg = 1000 Iu)] 25 mcg PO DAILY 09/02/21 [History] Clopidogrel [Plavix] 75 mg PO DAILY 09/02/21 [History] Cyanocobalamin (Vitamin B-12) [Vitamin B-12] 1,000 mcg PO DAILY 09/02/21 [History] Letrozole [Femara] 2.5 mg PO HS 09/02/21 [History] Levothyroxine Sodium [Synthroid] 75 mcg PO DAILY 09/02/21 [History] Loratadine [Claritin] 10 mg PO DAILY 09/02/21 [History] Metoprolol Succinate [Toprol XL] 25 mg PO DAILY 09/02/21 [History] Midodrine [ProAmatine] 15 mg PO BID 09/02/21 [History] Niacin 500 mg PO HS 09/02/21 [History] Vit C/E/Zn/Coppr/Lutein/Zeaxan [Preservision Areds 2 Softgel] 1 cap PO BID 09/02/21 [History] Vitamin B Complex 1 cap PO DAILY 09/02/21 [History] Docusate [Colace] 100 mg PO BID PRN cap 09/04/21 [Rx] Folic Acid 1 mg PO DAILY@1200 tab 09/04/21 [Rx] Meclizine [Antivert] 12.5 mg PO TID #60 tab 09/04/21 [Rx] Multivitamins, Thera [Multivitamin (formulary)] 1 each PO DAILY@1200 tab 09/04/21 [Rx] Thiamine [Vitamin B-1] 100 mg PO DAILY@1200 tab 09/04/21 [Rx] Follow up Appointment(s)/Referral(s): [facility], [NON-STAFF] - 1-2 Days Hernán Carson MD [Primary Care Provider] - 1-2 days James Otoole MD [STAFF PHYSICIAN] - 10/24/21 1:45 pm
--- NOTE | 2021-09-04 16:16 | P.CONS ---
History of Present Illness - Reason for Consult Consult date: 09/04/21 Rest cancer, unusual brainstem lesion Requesting physician: Carolina Madera - Chief Complaint Right lower extremity weakness - History of Present Illness Mrs. Espinoza is a very pleasant patient of Dr. Otoole with a history of breast cancer currently not on any treatment, recent PET scan was negative. She came in because of progressive lower extremity weakness. She states that her balance has been off for a long time, started after inner ear surgery, worse after she had a recent fall and hit her head. She had a MRI without contrast of the head showing a suspicious area. She states that the weakness in her legs is improved slightly today, dizziness is little better too. Review of Systems 10 point review of systems is negative except as stated in HPI Past Medical History Past Medical History: Atrial Fibrillation, Cancer Additional Past Medical History / Comment(s): hypotension, balance issues History of Any Multi-Drug Resistant Organisms: None Reported Past Surgical History: Ear Surgery, Heart Catheterization With Stent, Orthopedic Surgery Additional Past Surgical History / Comment(s): rt shoulder Past Psychological History: No Psychological Hx Reported Smoking Status: Never smoker Past Alcohol Use History: None Reported Past Drug Use History: None Reported Medications and Allergies Home Medications Medication Instructions Recorded Confirmed Type Aspirin EC [Ecotrin Low Dose] 81 mg PO DAILY 09/02/21 09/02/21 History Calcium Carbonate/Vitamin D3 1 tab PO DAILY 09/02/21 09/02/21 History [Calcium 500 mg-Vit D3 5 mcg (200 Unit)] Cholecalciferol [Vitamin D3 (25 25 mcg PO DAILY 09/02/21 09/02/21 History Mcg = 1000 Iu)] Clopidogrel [Plavix] 75 mg PO DAILY 09/02/21 09/02/21 History Cyanocobalamin (Vitamin B-12) 1,000 mcg PO DAILY 09/02/21 09/02/21 History [Vitamin B-12] Letrozole [Femara] 2.5 mg PO HS 09/02/21 09/02/21 History Levothyroxine Sodium [Synthroid] 75 mcg PO DAILY 09/02/21 09/02/21 History Loratadine [Claritin] 10 mg PO DAILY 09/02/21 09/02/21 History Metoprolol Succinate [Toprol XL] 25 mg PO DAILY 09/02/21 09/02/21 History Midodrine [ProAmatine] 15 mg PO BID 09/02/21 09/02/21 History Niacin 500 mg PO HS 09/02/21 09/02/21 History Vit C/E/Zn/Coppr/Lutein/Zeaxan 1 cap PO BID 09/02/21 09/02/21 History [Preservision Areds 2 Softgel] Vitamin B Complex 1 cap PO DAILY 09/02/21 09/02/21 History Docusate [Colace] 100 mg PO BID PRN cap 09/04/21 Rx Folic Acid 1 mg PO DAILY@1200 tab 09/04/21 Rx Meclizine [Antivert] 12.5 mg PO TID #60 tab 09/04/21 Rx Multivitamins, Thera [Multivitamin 1 each PO DAILY@1200 tab 09/04/21 Rx (formulary)] Thiamine [Vitamin B-1] 100 mg PO DAILY@1200 tab 09/04/21 Rx Allergies Allergy/AdvReac Type Severity Reaction Status Date / Time No Known Allergies Allergy Verified 09/02/21 11:16 Physical Exam Vitals: Vital Signs Temp Pulse Pulse Pulse Pulse Resp BP 09/04/21 07:00 97.7 F 58 L 18 09/04/21 02:00 97.6 F 66 16 09/04/21 01:40 16 09/03/21 20:03 98.2 F 78 81 69 16 117/74 09/03/21 15:00 97.9 F 78 89 67 18 108/71 BP BP BP Pulse Ox 09/04/21 07:00 116/70 96 09/04/21 02:00 99/62 96 09/04/21 01:40 09/03/21 20:03 108/74 120/67 98 09/03/21 15:00 116/75 111/60 98 Intake and Output 09/03/21 09/04/21 09/04/21 22:59 06:59 14:59 Intake Total 402 Balance 402 Intake: Oral 402 Other: Voiding Method Toilet Toilet Toilet # Voids 1 3 1 # Bowel Movements 1 - Constitutional General appearance: average body habitus, cooperative, no acute distress - EENT Eyes: anicteric sclerae, EOMI ENT: hearing grossly normal, normal oropharynx - Neck Neck: no lymphadenopathy - Respiratory Respiratory: bilateral: CTA - Cardiovascular Rhythm: regular Heart sounds: normal: S1, S2 Abnormal Heart Sounds: no systolic murmur, no diastolic murmur, no rub, no S3 Gallop, no S4 Gallop, no click, no other leg Peripheral Edema: bilateral: None - Gastrointestinal General gastrointestinal: no absent bowel sounds, no decreased bowel sounds, no distended, no hepatomegaly, no hyperactive bowel sounds, normal bowel sounds, no organomegaly, no rigid, no scaphoid, soft, no splenomegaly, no tenderness, no umbilical hernia, no ventral hernia - Integumentary Integumentary: normal - Neurologic Patient looks to have left-sided mild foot drop, is maintained, left dorsiflexion is slightly weaker than the right. - Psychiatric Psychiatric: A&O x's 3, appropriate affect, intact judgment & insight Results CBC & Chem 7: 09/04/21 05:31 09/04/21 11:35 Labs: Abnormal Lab Results - Last 24 Hours (Table) 09/03/21 09/04/21 Range/Units 05:52 05:31 WBC 3.20 L (4.50-10.00) X 10*3/uL RBC 2.71 L (4.10-5.20) X 10*6/uL Hgb 9.8 L (12.0-15.0) g/dL Hct 30.7 L (37.2-46.3) % MCV 113.3 H (80.0-97.0) fL MCH 36.2 H (27.0-32.0) pg MCHC 31.9 L (32.0-37.0) g/dL RDW 14.6 H (11.5-14.5) % Neutrophils # 1.33 L 1.27 L (1.80-7.70) X 10*3/uL Comments: X-ray reports reviewed CT Scan - head: report reviewed MRI - head: report reviewed (Without contrast) Assessment and Plan (1) Right leg weakness Narrative/Plan: MRI of the brain without contrast showed a suspicious lesion. MRI with contrast has been ordered. MRI of the C-spine is also been requested to f/u on a previous finding. Status: Acute Priority: High Code(s): R29.898 - OTH SYMPTOMS AND SIGNS INVOLVING THE MUSCULOSKELETAL SYSTEM SNOMED Code(s): 582746613 (2) Breast cancer Narrative/Plan: Keep f/u plans with Dr. Otoole Status: Chronic Priority: Medium Code(s): C50.919 - MALIGNANT NEOPLASM OF UNSP SITE OF UNSPECIFIED FEMALE BREAST SNOMED Code(s): 818306024 Plan: Attests: I have performed H&P, developed impression and plan of care, discussed with dictator. Agree with documentation, documented as a scribe.
--- NOTE | 2021-09-05 04:25 | MR ---
EXAMINATION TYPE: MR cervical spine wo/w con DATE OF EXAM: 09/04/2021 COMPARISON: None HISTORY: Follow up on previous suspicious finding CONTRAST: Standard multiplanar, multisequence MRI departmental protocol images were obtained without contrast a nd with 6.5 mL intravenous Gadavist gadolinium contrast. Cervical vertebra have normal alignment. There is slight increased signal in the cervical spinal cord at the C5 level. There is small posterior mild disc bulging from C3 to C7. There is developmentally adequate spinal canal. The canal measures 8 mm at C3-4 which is the narrowest point. Brainstem is int act. There is no evidence for fracture. The contrast images show no pathologic enhancement. IMPRESSION: Multilevel mild posterior disc bulging. No significant spinal stenosis. Very subtle increased signal on the T2 images in the cervical cord at the C5 level of uncertain significance. No evidence of a cor d mass. No fracture.
== END 2021-09-04 15:46 | disposition home health service (06) | DRG 948 ==
LOC: EC 08:23 → 6NMEDSUR 10:34 → OBSVTOIN 09-04 09:54
PROVIDERS: ADMIT Internal Medicine; ATTEND Internal Medicine
DX: R53.1 Weakness (principal); I48.19 Other persistent atrial fibrillation; I67.89 Other cerebrovascular disease; G95.9 Disease of spinal cord, unspecified; R42 Dizziness and giddiness; R29.6 Repeated falls; Z20.822 Contact with and (suspected) exposure to COVID-19; D64.9 Anemia, unspecified; D72.819 Decreased white blood cell count, unspecified; D75.89 Other specified diseases of blood and blood-forming organs; E03.9 Hypothyroidism, unspecified; T45.1X5A Adverse effect of antineoplastic and immunosuppressive drugs, initial encounter; I25.10 Atherosclerotic heart disease of native coronary artery without angina pectoris; G47.00 Insomnia, unspecified; M19.90 Unspecified osteoarthritis, unspecified site; G62.0 Drug-induced polyneuropathy; G89.29 Other chronic pain; I10 Essential (primary) hypertension; K59.00 Constipation, unspecified; Y92.009 Unspecified place in unspecified non-institutional (private) residence as the place of occurrence of the external cause; Z79.01 Long term (current) use of anticoagulants; Z79.02 Long term (current) use of antithrombotics/antiplatelets; Z79.82 Long term (current) use of aspirin; Z79.890 Hormone replacement therapy; Z79.899 Other long term (current) drug therapy; Z85.3 Personal history of malignant neoplasm of breast; Z90.10 Acquired absence of unspecified breast and nipple; Z95.5 Presence of coronary angioplasty implant and graft; Z95.818 Presence of other cardiac implants and grafts
CPT/HCPCS: 36415; 70450; 70551; 70552; 72082; 72156; 72220; 80048; 80053; 83735; 85025; 85610; 85730; 87635; 93005; 93880; 99285

== ENCOUNTER → 2021-11-16 | Outpatient (CLI) | payer MEDICARE ==
--- NOTE | 2021-11-16 13:45 | XR ---
Left leg HISTORY: Pain, ecchymosis, trauma several days prior Two views of the left leg Bone mineralization is reduced, joint spaces and alignment are maintained. There is soft tissue swell ing. Soft tissue calcifications may be vascular in the pretibial location, correlate for possible natalya ous stasis disease. Arthropathy noted with spurring at the patellofemoral joint, enthesophyte formati on IMPRESSION: No fracture or dislocation.
== END | disposition home or self-care (01) ==
LOC: RADXRMAIN 11:15
PROVIDERS: ATTEND Internal Medicine
DX: M25.562 Pain in left knee (principal); R58 Hemorrhage, not elsewhere classified

== ENCOUNTER → 2021-12-14 | Outpatient (CLI) | payer MEDICARE ==
--- NOTE | 2021-12-14 19:27 | MR ---
EXAMINATION TYPE: MR knee LT wo con DATE OF EXAM: 12/14/2021 COMPARISON: Left leg 11/16/2021 HISTORY: M25.562 Pain in left knee, Pain on lateral side, running down to Ankle TECHNIQUE: Multiplanar, multisequence imaging of the left knee is performed without IV contrast. FINDINGS: MEDIAL MENISCUS: Abnormal signal at the undersurface of the body of the medial meniscus, coronal imag e 21 consistent with small tear LATERAL MENISCUS: Root anchor of the posterior horn of the lateral meniscus is thought to be disconti nuous CRUCIATE LIGAMENTS: The anterior and posterior cruciate ligaments are intact and unremarkable. COLLATERAL LIGAMENTS: The medial collateral ligament and lateral collateral ligament complex are inta ct and unremarkable. EXTENSOR MECHANISM: Visualized quadriceps and patellar tendons are intact. 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 IMPRESSION: Osteoarthritis. Small tear of the medial meniscus at the undersurface, root anchor tear suspected of the lateral meniscus
== END | disposition home or self-care (01) ==
LOC: RADMRIMAIN 15:52
PROVIDERS: ATTEND Internal Medicine
DX: M17.12 Unilateral primary osteoarthritis, left knee (principal)

== ENCOUNTER 2022-01-15 03:45 | Emergency (ER) | payer MEDICARE ==
[2022-01-15 03:57] VITALS: RESP 18; TEMP 97.9
[2022-01-15] MEDS ORDERED: KETOROLAC 15 MG/ML 1 ML VIAL IM STA (04:43)
[2022-01-15] MEDS ORDERED: predniSONE 20 MG TAB PO STA (04:43)
[2022-01-15] MEDS ORDERED: MORPHINE SULFATE 4 MG/ML SYRINGE IM STA (04:43)
--- NOTE | 2022-01-15 05:36 | CT ---
EXAMINATION TYPE: CT lumbar spine wo con DATE OF EXAM: 01/15/2022 COMPARISON: None HISTORY: pain CT DLP: 751.2 mGycm Automated exposure control for dose reduction was used. Images obtained from the level of T12-S3 vertebra without contrast. There is osteopenia. There are some biconcave deformity of the lumbar vertebra and more noticeable at L4 level. The posterior elements are intact. No definite acute fracture seen. There is no evidence o f lumbar paraspinal mass. There is some spinal stenosis at L4-5 due to subluxation and mild facet art hropathy. There is no significant disc space narrowing. Sacroiliac joints are intact. IMPRESSION: Osteopenia with biconcave deformity consistent with osteomalacia throughout the lumbar spine. There i s a 20% compression deformity of L4 that does not appear acute. Mild spinal stenosis at L4-5.
--- NOTE | 2022-01-15 07:17 | ED ---
Back Pain HPI - General Chief Complaint: Back Pain/Injury Stated Complaint: Back Pain Time Seen by Provider: 01/15/22 03:56 Source: patient - History of Present Illness Initial Comments: This patient is an 82-year-old woman who presents to have evaluation of lower back pain. He has come on over the course of last evening into this morning. She does not recall any specific trauma. No recent falls. Patient is not having weakness or numbness of the extremities. No change in bladder or bowel function. No saddle anesthesia MD Complaint: back pain -: hour(s) Similar Symptoms Previously: No Place: home Radiation: none Severity: severe Quality: aching Consistency: constant Improves With: none Worsens With: movement Associated Symptoms: denies other symptoms - Related Data Home Medications Medication Instructions Recorded Confirmed Aspirin EC [Ecotrin Low Dose] 81 mg PO DAILY 09/02/21 01/15/22 Cholecalciferol [Vitamin D3 (25 25 mcg PO BID@0800,1200 09/02/21 01/15/22 Mcg = 1000 Iu)] Clopidogrel [Plavix] 75 mg PO DAILY@1200 09/02/21 01/15/22 Letrozole [Femara] 2.5 mg PO HS 09/02/21 01/15/22 Levothyroxine Sodium [Synthroid] 75 mcg PO DAILY 09/02/21 01/15/22 Loratadine [Claritin] 10 mg PO DAILY 09/02/21 01/15/22 Metoprolol Succinate [Toprol XL] 25 mg PO HS 09/02/21 01/15/22 Midodrine [ProAmatine] 15 mg PO BID@0800,1200 09/02/21 01/15/22 Niacin 500 mg PO HS 09/02/21 01/15/22 Vit C/E/Zn/Coppr/Lutein/Zeaxan 1 cap PO BID 09/02/21 01/15/22 [Preservision Areds 2 Softgel] Vitamin B Complex 1 cap PO DAILY@1200 09/02/21 01/15/22 Ascorbic Acid [Vitamin C] 1,000 mg PO DAILY 01/15/22 01/15/22 Atorvastatin [Lipitor] 40 mg PO DAILY@1200 01/15/22 01/15/22 Folic Acid 0.4 mg PO DAILY 01/15/22 01/15/22 Previous Rx's Medication Instructions Recorded Thiamine [Vitamin B-1] 100 mg PO DAILY@1200 tab 09/04/21 HYDROcodone/APAP 5-325MG [Rosenhayn 1 tab PO Q4HR PRN 3 Days #18 tab 01/15/22 5-325] Sulfamethox-Tmp 800-160Mg [Bactrim 1 each PO Q12HR #6 tab 01/15/22 Ds] predniSONE [Deltasone] 20 mg PO BID #8 tab 01/15/22 Allergies Allergy/AdvReac Type Severity Reaction Status Date / Time No Known Allergies Allergy Verified 01/15/22 07:43 Review of Systems ROS Statement: Those systems with pertinent positive or pertinent negative responses have been documented in the HPI. ROS Other: All systems not noted in ROS Statement are negative. Constitutional: Denies: fever, chills, weakness Respiratory: Denies: cough, dyspnea Cardiovascular: Denies: chest pain, palpitations Gastrointestinal: Denies: abdominal pain, vomiting, diarrhea, constipation Genitourinary: Denies: dysuria, frequency, hematuria Musculoskeletal: Reports: back pain Skin: Denies: rash Neurological: Denies: headache, weakness, numbness, paresthesias Past Medical History Past Medical History: Atrial Fibrillation, Cancer Additional Past Medical History / Comment(s): hypotension, balance issues History of Any Multi-Drug Resistant Organisms: None Reported Past Surgical History: Ear Surgery, Heart Catheterization With Stent, Orthopedic Surgery Additional Past Surgical History / Comment(s): rt shoulder Past Psychological History: No Psychological Hx Reported Smoking Status: Never smoker Past Alcohol Use History: None Reported Past Drug Use History: None Reported General Exam General appearance: alert, in no apparent distress Head exam: Present: atraumatic, normocephalic Eye exam: Present: normal appearance Neck exam: Present: normal inspection, full ROM. Absent: tenderness Respiratory exam: Present: normal lung sounds bilaterally. Absent: respiratory distress, wheezes, rales, rhonchi, stridor Cardiovascular Exam: Present: regular rate, normal rhythm, normal heart sounds. Absent: systolic murmur, diastolic murmur, rubs, gallop GI/Abdominal exam: Present: soft. Absent: distended, tenderness, guarding, rebound, rigid, pulsatile mass, hernia Extremities exam: Present: normal inspection, normal capillary refill. Absent: pedal edema, calf tenderness Back exam: Present: normal inspection, paraspinal tenderness. Absent: CVA tenderness (R), CVA tenderness (L) Neurological exam: Present: alert, reflexes normal. Absent: motor sensory deficit Skin exam: Present: warm, dry, intact, normal color. Absent: rash Course Vital Signs 01/15/22 01/15/22 01/15/22 03:53 05:53 07:02 Temperature 97.9 F Pulse Rate 71 69 71 Respiratory 18 18 18 Rate Blood Pressure 115/70 126/81 O2 Sat by Pulse 97 96 96 Oximetry 01/15/22 08:21 Temperature Pulse Rate 67 Respiratory 18 Rate Blood Pressure 134/68 O2 Sat by Pulse 95 Oximetry Medical Decision Making - Lab Data Lab Results 01/15/22 Range/Units 06:59 Urine Color Light Yellow Urine Appearance Clear (Clear) Urine pH 6.0 (5.0-8.0) Ur Specific [place] 1.013 (1.001-1.035) Urine Protein Negative (Negative) Urine Glucose (UA) Negative (Negative) Urine Ketones Negative (Negative) Urine Blood Negative (Negative) Urine Nitrite Positive H (Negative) Urine Bilirubin Negative (Negative) Urine Urobilinogen <2.0 (<2.0) mg/dL Ur Leukocyte Esterase Moderate H (Negative) Urine RBC 1 (0-5) /hpf Urine WBC 6 H (0-5) /hpf Urine Bacteria Moderate H (None) /hpf Urine Mucus Rare H (None) /hpf Disposition Clinical Impression: Back pain Disposition: HOME SELF-CARE Condition: Good Instructions (If sedation given, give patient instructions): Acute Low Back Pain (ED) Prescriptions: Sulfamethox-Tmp 800-160Mg [Bactrim Ds] 1 each PO Q12HR #6 tab predniSONE [Deltasone] 20 mg PO BID #8 tab HYDROcodone/APAP 5-325MG [Rosenhayn 5-325] 1 tab PO Q4HR PRN 3 Days #18 tab PRN Reason: Pain Is patient prescribed a controlled substance at d/c from ED?: No Referrals: Hernán Carson MD [Primary Care Provider] - 1-2 days
[2022-01-15 07:52] LABS: Appearance,Urine Clear (Clear); Bacteria,Urine Moderate /hpf; Bilirubin,Urine Negative (Negative); Blood,Urine Negative (Negative); Color,Urine Light Yellow; Glucose,Urine (UA) Negative (Negative); Ketones,Urine Negative (Negative); Leukocyte Esterase,Urine Moderate (Negative); Mucus,Urine Rare /hpf; Nitrite,Urine Positive (Negative); Protein,Urine Negative (Negative); RBC,Urine 1 /hpf (0-5); Specific Gravity,Urine 1.013 (1.001-1.035); Urobilinogen,Urine <2.0 mg/dL (<2.0); WBC,Urine 6 /hpf (0-5)
[2022-01-15] MEDS ORDERED: SULFAMETHOX-TMP 800-160MG 1 EACH TAB PO STA (07:59)
[2022-01-15] MEDS ORDERED: HYDROcodone/APAP 5-325MG 1 EACH TAB PO STA (08:16)
[2022-01-15 08:22] VITALS: BP 134/68; PULSE 67
== END 2022-01-15 08:21 | disposition home or self-care (01) ==
LOC: EC 03:45
DX: M54.9 Dorsalgia, unspecified (principal)
CPT/HCPCS: 81001; 72131; 99284; 96372; J2270; J1885; J7512

== ENCOUNTER 2022-02-15 12:28 | Day surgery (SDC) | payer MEDICARE ==
--- NOTE | 2022-02-14 14:35 | HP ---
HISTORY AND PHYSICAL DATE OF SURGERY: 02/15/2022 Lisbeth Espnioza is an 82-year-old patient seen with progressive left knee pain. We discussed options for treatment. She elected to proceed with left knee arthroscopy. Consent was obtained. Cardiac and medical clearances were obtained. PAST MEDICAL HISTORY: Cardiovascular disease, hypertension, hyperlipidemia, hypothyroidism. PAST SURGICAL HISTORY: Tubal ligation, knee arthroscopy, shoulder arthroscopy, wrist surgery, tonsillectomy. DAILY MEDICATIONS: Atorvastatin, letrozole, levothyroxine, loratadine, metoprolol. ALLERGIES: NONE. SOCIAL HISTORY: She denies tobacco use. PHYSICAL EVALUATION OF THE LEFT KNEE: Her range of motion is negative 3/4 to 100. Mild effusion. Tenderness along the medial and lateral joint lines. Positive medial Juan A's. Positive lateral Juan A's. Ligaments stable. Hip rotation without pain. Distal neurovascular exam intact. Radiographs of the left knee reveal moderate osteoarthritis. MRI left knee revealed medial meniscal tear and lateral meniscal tear. IMPRESSION: 1. Internal derangement of left knee with medial and lateral meniscal tears. 2. Left knee osteoarthritis. 3. Hyperlipidemia. 4. Hypertension. 5. Cardiovascular disease. PLAN: Left knee arthroscopy with partial medial/lateral meniscectomy and debridement. MMODL / IJN: [id number] /
[~2022-02-15 12:28] MED LIST: LACTATED RINGERS 1,000 ML IV SCH; ONDANSETRON 4 MG/2 ML VIAL IVP ONE; fentaNYL (PF) 50 MCG/ML 2 ML AMP IV PRN
[2022-02-15] MEDS ORDERED: LIDOCAINE 1% (10MG/ML) FOR IV START INTRADERMA ONE (13:33)
[2022-02-15] MEDS ORDERED: DEXAMETHASONE SOD PHOSPHATE 4 MG/ML 1 ML VIAL IVP ONE (13:33)
[2022-02-15] MEDS ORDERED: PROPOFOL 10 MG/ML 20 ML VIAL IV ONE (14:58)
[2022-02-15] MEDS ORDERED: SUCCINYLCHOLINE CHLORIDE 100 MG/5 ML SYR IV ONE (14:58)
[2022-02-15] MEDS ORDERED: fentaNYL (PF) 50 MCG/ML 2 ML AMP ONE (14:58)
[2022-02-15] MEDS ORDERED: LIDOCAINE 2% INJ 20 MG/ML (2 ML VIAL) ONE (14:58)
[2022-02-15] MEDS ORDERED: MIDAZOLAM 2 MG/2 ML VIAL ONE (14:58)
[2022-02-15] MEDS ORDERED: BUPIVACAINE (PF) 0.25% 30 ML VIAL SQ ONE (15:03)
--- NOTE | 2022-02-15 15:40 | P.OP ---
Date of Procedure: 02/15/22 Preoperative Diagnosis: Internal derangement left knee Postoperative Diagnosis: 1. Tear medial and lateral meniscus left knee 2. Reactive synovitis medial, lateral and suprapatellar compartments left knee Procedure(s) Performed: 1. Arthroscopic partial medial and lateral meniscectomy left knee 2. Arthroscopic partial synovectomy medial, lateral and suprapatellar compartments left knee Anesthesia: GETA, local Surgeon: Karsten Villalta Estimated Blood Loss (ml): 7 Pathology: none sent Condition: stable Disposition: PACU Indications for Procedure: 82-year-old patient seen with progressive left knee pain. After having treatment options discussed, she elected to proceed with arthroscopy. Operative Findings: She description of procedure Description of Procedure: Patient was taken to the operative suite. Patient underwent a general anesthetic by the department of anesthesia. Patient was given preoperative antibiotics. The left lower extremity was placed in a well-padded arthroscopic leg moody. The left leg was prepped and draped in the normal sterile orthopedic fashion. A lateral parapatellar and suprapatellar incision was made. Trochars were inserted. Arthroscopy was initiated. Suprapatellar pouch revealed diffuse thick reactive synovitis. The patellofemoral joint appeared to articulate congruently. There was grade 1/2 chondral malacia the patella with no tears present.. The scope was guided into the medial gutter. Loose bodies or plica were identified. The scope was then guided into the medial compartment. A medial parapatellar incision was made. Trocar inserted followed by probe. There was a radial tear posterior horn medial meniscus. There were grade 2 chondromalacia changes throughout the medial compartment with no tears. There was some thick reactive synovitis anteriorly. I performed a partial medial meniscectomy getting down to stable meniscal tissue. I performed a partial synovectomy decompressing the reactive synovitis. The residual meniscus was stable. There was good decompression of the synovitis. Scope and probe were then guided into the intercondylar notch. Cruciates were identified, probed and found to be stable. The scope and probe were then guided into lateral compartment. There was a tear posterior horn lateral meniscus. There were grade 1/2 chondral malacia changes lateral compartment with no tears. There was thick reactive synovitis anteriorly. I performed a partial lateral meniscectomy getting down to stable meniscal tissue. I performed a partial synovectomy. Shaver was removed. The residual meniscus was stable. There was good decompression of synovitis. The scope was in guided back into the suprapatellar compartment. I introduced a motorized shaver into the suprapatellar compartment. I debrided some piecemeal fragments of meniscus that I encountered. I performed a partial synovectomy. The shaver was now removed. There was good decompression of synovitis. Instruments were now removed from the joint. The joint was infiltrated with .25% Marcaine. Steri-Strips were applied to the portal sites. Sterile dressings were applied. The patient was placed into a LILLIAN hose. No tourniquet was utilized. The patient was awakened, transferred to a bed and taken to recovery stable satisfactory condition.
[2022-02-15 16:11] VITALS: TEMP 96.8
[2022-02-15 16:13] VITALS: RESP 16
[2022-02-15 16:57] VITALS: BP 144/66; PULSE 62
== END 2022-02-15 17:23 | disposition home or self-care (01) ==
LOC: OR 12:28
PROVIDERS: ATTEND Orthopaedic Surgery
DX: M23.204 Derangement of unspecified medial meniscus due to old tear or injury, left knee (principal); M23.201 Derangement of unspecified lateral meniscus due to old tear or injury, left knee; M65.862 Other synovitis and tenosynovitis, left lower leg; M94.262 Chondromalacia, left knee; M17.12 Unilateral primary osteoarthritis, left knee; E03.9 Hypothyroidism, unspecified; K21.00 Gastro-esophageal reflux disease with esophagitis, without bleeding; E78.2 Mixed hyperlipidemia; I48.19 Other persistent atrial fibrillation; I25.10 Atherosclerotic heart disease of native coronary artery without angina pectoris; I10 Essential (primary) hypertension; E78.5 Hyperlipidemia, unspecified; I95.1 Orthostatic hypotension; Z87.820 Personal history of traumatic brain injury; Z85.3 Personal history of malignant neoplasm of breast; Z92.21 Personal history of antineoplastic chemotherapy; Z90.10 Acquired absence of unspecified breast and nipple; E55.9 Vitamin D deficiency, unspecified; R53.82 Chronic fatigue, unspecified; Z95.818 Presence of other cardiac implants and grafts; M85.80 Other specified disorders of bone density and structure, unspecified site; J45.909 Unspecified asthma, uncomplicated; G90.50 Complex regional pain syndrome I, unspecified; Z98.51 Tubal ligation status; Z98.890 Other specified postprocedural states; Z80.7 Family history of other malignant neoplasms of lymphoid, hematopoietic and related tissues; Z82.49 Family history of ischemic heart disease and other diseases of the circulatory system; Z79.02 Long term (current) use of antithrombotics/antiplatelets; Z79.82 Long term (current) use of aspirin; Z79.890 Hormone replacement therapy; Z79.899 Other long term (current) drug therapy
CPT/HCPCS: 29880; J2250; J1100; J2405; J0690; J3010; J0330; J2704; J2001

== ENCOUNTER → 2022-03-27 | Outpatient (CLI) | payer MEDICARE ==
[2022-03-27 12:37] LABS: Appearance,Urine Cloudy (Clear); Bilirubin,Urine Negative (Negative); Blood,Urine Negative (Negative); Color,Urine Light Yellow; Glucose,Urine (UA) Negative (Negative); Ketones,Urine Negative (Negative); Leukocyte Esterase,Urine Small (Negative); Mucus,Urine Occasional /hpf; Nitrite,Urine Negative (Negative); Protein,Urine 1+ (Negative); RBC,Urine 3 /hpf (0-5); Specific Gravity,Urine 1.019 (1.001-1.035); Squamous Epithelial Cell,Urine 1 /hpf (0-4); Urobilinogen,Urine <2.0 mg/dL (<2.0); WBC,Urine 14 /hpf (0-5)
[2022-03-27 12:56] LABS: INR 0.9 (<1.2); Partial Thromboplastin Time 23.5 sec (22.0-30.0); Prothrombin Time 10.2 sec (9.0-12.0)
--- NOTE | 2022-03-27 13:30 | XR ---
EXAMINATION TYPE: XR chest 2V DATE OF EXAM: 03/27/2022 COMPARISON: Chest x-ray 04/14/2021 HISTORY: Spondylolisthesis, preop TECHNIQUE: Frontal and lateral views of the chest are obtained. FINDINGS: There is no focal air space opacity, pleural effusion, or pneumothorax seen. The cardiac silhouette size is within normal limits. The osseous structures are intact, there is thoracic spond ylosis. There is a port in the right pectoral region with catheter near the level the cavoatrial junc tion and its tip. Device overlying the heart, correlate for appropriate history possibly along the le ft atrial appendage. Surgical clips are present over the right axilla. IMPRESSION: No acute cardiopulmonary process. There are postprocedural changes as described
[2022-03-27 18:30] LABS: Basophils # (A) 0.02 X 10*3/uL (0.00-0.10); Basophils % (A) 0.3 %; Eosinophils # (A) 0.23 X 10*3/uL (0.04-0.35); Eosinophils % (A) 3.8 %; HCT 36.6 % (37.2-46.3); Immature Grans, Automated 0.5 %; Lymphocytes # (A) 1.82 X 10*3/uL (0.90-5.00); Lymphocytes % (A) 30.1 %; MCH 30.7 pg (27.0-32.0); MCHC 30.1 g/dL (32.0-37.0); MCV 102.2 fL (80.0-97.0); Mean Platelet Volume 10.3 fL (9.5-12.2); Monocytes % (A) 9.9 %; NRBC Per 100 WBC 0 /100 WBCS (0.0-0.0); Neutrophils # (A) 3.35 X 10*3/uL (1.80-7.70); Neutrophils % (A) 55.4 %; Platelet Count 219 X 10*3/uL (140-440); RBC 3.58 X 10*6/uL (4.10-5.20); RDW 14.1 % (11.5-14.5); WBC 6.05 X 10*3/uL (4.50-10.00)
[2022-03-27 18:41] LABS: African American GFR (CKD) 54.9 (60.0-200.0); Albumin 4.2 g/dL (3.8-4.9); Albumin/Globulin Ratio 1.56 (1.60-3.17); Anion Gap 10.7 mmol/L (10.00-18.00); BUN/Creat Ratio 15.27 Ratio (12.00-20.00); Blood Urea Nitrogen 16.8 mg/dL (9.0-27.0); Calcium 9.8 mg/dL (8.7-10.3); Carbon Dioxide 23.3 mmol/L (20.0-27.5); Globulin 2.7 g/dL (1.6-3.3); Non-African American GFR(CKD) 47.4 (60.0-200.0); Total Bilirubin 0.3 mg/dL (0.30-1.20); Total Protein 6.9 g/dL (6.2-8.2)
== END | disposition home or self-care (01) ==
LOC: RADXRMAIN 10:40
PROVIDERS: ATTEND Neurological Surgery
DX: Z01.812 Encounter for preprocedural laboratory examination (principal); C79.51 Secondary malignant neoplasm of bone; M43.16 Spondylolisthesis, lumbar region; M47.26 Other spondylosis with radiculopathy, lumbar region; M47.814 Spondylosis without myelopathy or radiculopathy, thoracic region
CPT/HCPCS: 71046; 80053; 81001; 83036; 85025; 85610; 85730; 86850; 86900; 86901; 87070; 87086